=== PATIENT | female | born 1960 | race Caucasian/White ===

== ENCOUNTER → 2018-02-21 | Outpatient (CLI) | payer BC ==
[~2018-02-21] MED LIST: ATORVASTATIN CA20 MG PO; BIOTIN2500 MCG PO; INSULIN PUMP SC; METFORMIN HCL500 MG PO; POTASSIUM CITR10 MEQ PO; SYNTHROID125 MCG PO; VIT D3 PO
--- NOTE | 2018-02-22 08:51 | Diagnostic Imaging Report ---
TECHNIQUE: Magnetic resonance imaging of the RIGHT foot was performed WITHOUT injected contrast. HISTORY: Right foot pain, evaluate for infection COMPARISON: None available. DISCUSSION: Bone: No focal or infiltrative bone marrow replacing abnormality. No acute fracture or osteonecrosis. Remote fracture of the second metatarsal. Joints: Scattered degenerative arthrosis of the midfoot first MTP joint and first IP joint. Soft Tissues: Soft tissue thickening at the plantar surface of the first metatarsal head. Atrophy of the foot musculature. IMPRESSION: No acute abnormalities or osteomyelitis Signed by: Dr. Jay Nevarez M.D. on 02/22/2018 8:47 AM
== END ==
LOC: MRI 16:07
PROVIDERS: ATTEND Podiatrist Foot Surgery
DX: M86.8X7 Other osteomyelitis, ankle and foot (principal)

== ENCOUNTER → 2018-03-14 | Day surgery (SDC) | payer BC ==
[2018-03-09 13:25] LABS: BASOPHILS # (AUTO) 0.1 (0.0-0.1); BASOPHILS % 0.8 % (0.0-1.0); EOSINOPHILS # (AUTO) 0.7 (0.0-0.4); EOSINOPHILS % 6.1 % (0.0-6.0); HEMATOCRIT 40.3 % (34.2-44.1); HEMOGLOBIN 13.5 g/dL (12.0-16.0); LYMPHOCYTES # (AUTO) 4.1 (1.0-3.2); LYMPHOCYTES % 34.4 % (18.0-39.1); MEAN CORPUSCULAR HEMOGLOBIN 29.4 pg (28-32); MEAN CORPUSCULAR HGB CONC 33.5 g/dL (31-35); MEAN CORPUSCULAR VOLUME 87.8 fL (81-99); MONOCYTES # (AUTO) 1.1 (0.2-0.8); MONOCYTES % 9.5 % (4.4-11.3); NEUTROPHILS # (AUTO) 5.8 (2.1-6.9); PLATELET COUNT 311 x10e3/uL (140-360); RED BLOOD COUNT 4.59 x10e6/uL (3.6-5.1); RED CELL DISTRIBUTION WIDTH 14.3 % (11.7-14.4)
--- NOTE | 2018-03-09 13:26 | Diagnostic Imaging Report ---
Frontal and lateral views of the chest. HISTORY: PRE ADMIT foot surgery COMPARISON: None available. DISCUSSION: Soft tissue attenuation partially limits sensitivity of the exam. Lungs: Low lung volumes result in bibasilar vascular crowding, accentuation of the pulmonary interstitial markings, central pulmonary vasculature, and the cardiac silhouette. Allowing for these limitations, the findings are as follows: Mild left basilar atelectasis versus scarring. No evidence of a consolidative pneumonia or pulmonary alveolar edema. Pleura: No pleural effusion or pneumothorax. Heart and mediastinum: The cardiomediastinal silhouette appears unremarkable. Bones: No acute osseous lesion. Flowing marginal anterior osteophytes at multiple contiguous levels. Other: Partially visualized radiopaque portions of a lap band. Metallic clips in the right upper quadrant of the abdomen are compatible with prior cholecystectomy. IMPRESSION: 1. Mild left basilar atelectasis versus scarring. 2. Otherwise, unremarkable. Signed by: Dr. Juan Carrion D.O., M.M.M. on 03/09/2018 1:23 PM
[2018-03-09 13:55] LABS: CALCIUM 8.7 mg/dL (8.4-10.2); CREATININE, SERUM 0.99 mg/dL (0.57-1.11)
[~2018-03-14] MED LIST changes: +ACETAMINOPHEN 1000 MG/100 ML IV ONE; +BETAMETHASONE DISODIUM PHOS 6 MG/ML VIAL ONE; +BUPIVACAINE 0.25% 30ML SDV INJ ONE; +CEFAZOLIN SOD 2 GM/D5W 50ML 50 ML IV ONE; +DEXAMETHASONE SOD PHOS INJ 4 MG/ML VIAL ONE; +FENTANYL CITRATE/PF 100MCG/2 ML INJ ONE; +KETOROLAC TROMETHAMINE 30 MG/ML VIAL ONE; +LIDOCAINE HCL 1% LOCAL INJ 20 ML VIAL ONE; +LIDOCAINE HCL 2% LOCAL INJ 5 ML SDV VIAL INJ ONE; +MIDAZOLAM HCL 2 MG/2 ML VIAL ONE; +MUPIROCIN 2% OINT 22 GM TUBE ONE; +ONDANSETRON HCL INJ 2 MG/ML VIAL ONE; +PROPOFOL IV EMULSION 10 MG/ML 20 ML VIAL ONE; +SEVOFLURANE INHAL SOLN 250 ML PEN BTL ONE
--- OUTSIDE RECORDS SUMMARY | 2018-03-14 05:27 | XMS REPORT | Continuity of Care Document ---
Author Author [facility] Address Unknown Phone Unavailable Care Team Providers Care Explosive Ordnance Disposal Specialist Name Role Phone MD Livan, [place] RUELAS Unavailable Insurance Providers Payer name Policy type / Coverage type Policy ID Covered democrat ID Policy [facility] (POS) Encounters Encounter Performer Location Date Lab Report [place] Licona MD [facility] General Surgery 350 Dec 17, 2013 Allergies, Adverse Reactions, Alerts Type Substance Reaction Status Drug allergy SULFA Active Problems Problem Effective Dates Problem Status CHOLECYSTECTOMY, LAPAROSCOPIC, HX OF Mar 26, 2013 Active Procedures Date Description Comments Mar 26, 2013 smoking status never smoker Medications Medication Instructions Start Date Status METFORMIN 500 Mar 26, 2013 Active LEVOTHYROXINE SODIUM TABS Mar 26, 2013 Active GLIMEPIRIDE 2 MG TABS Mar 26, 2013 Active BYDUREON SUSR Mar 26, 2013 Active LANTUS SOLN Mar 26, 2013 Active SIMVASTATIN 20 MG TABS Mar 26, 2013 Active LISINOPRIL 20 MG TABS Mar 26, 2013 Active BIOTIN 5000 CAPS Mar 26, 2013 Active Vital Signs Date Description Test Result Mar 26, 2013 height E&M - 8302-2 HEIGHT 68 in Mar 26, 2013 weight E&M - 3141-9 WEIGHT 234 lb Mar 26, 2013 temperature E&M TEMPERATURE 98.4 deg f Mar 26, 2013 pulse rate E&M - 8867-4 PULSE RATE 98 /min Mar 26, 2013 blood pressure, systolic - 8480-6 BP SYSTOLIC 120 mm Hg Mar 26, 2013 blood pressure, diastolic - 8462-4 BP DIASTOLIC 83 mm Hg Apr 02, 2013 weight E&M - 3141-9 WEIGHT 234 lb Apr 02, 2013 temperature E&M TEMPERATURE 98.1 deg f Apr 02, 2013 pulse rate E&M - 8867-4 PULSE RATE 98 /min Apr 02, 2013 blood pressure, systolic - 8480-6 BP SYSTOLIC 115 mm Hg Apr 02, 2013 blood pressure, diastolic - 8462-4 BP DIASTOLIC 81 mm Hg Dec 09, 2013 height E&M - 8302-2 HEIGHT 68 in Dec 09, 2013 weight E&M - 3141-9 WEIGHT 230 lb Dec 09, 2013 temperature E&M TEMPERATURE 98.0 deg f Dec 09, 2013 pulse rate E&M - 8867-4 PULSE RATE 87 /min Dec 09, 2013 blood pressure, systolic - 8480-6 BP SYSTOLIC 145 mm Hg Dec 09, 2013 blood pressure, diastolic - 8462-4 BP DIASTOLIC 89 mm Hg Dec 17, 2013 weight E&M - 3141-9 WEIGHT 232 lb Dec 17, 2013 temperature E&M TEMPERATURE 98.1 deg f Dec 17, 2013 pulse rate E&M - 8867-4 PULSE RATE 92 /min Dec 17, 2013 blood pressure, systolic - 8480-6 BP SYSTOLIC 117 mm Hg Dec 17, 2013 blood pressure, diastolic - 8462-4 BP DIASTOLIC 77 mm Hg
--- OUTSIDE RECORDS SUMMARY | 2018-03-14 05:27 | XMS REPORT | Continuity of Care Document ---
Author Author [facility] Address Unknown Phone Unavailable Care Team Providers Care Storeroom Attendant Name Role Phone MD Livan, [place] RUELAS Unavailable Insurance Providers Payer name Policy type / Coverage type Policy ID Covered green party ID Policy Byr[facility] (POS) Encounters Encounter Performer Location Date Office Visit [place] Licona MD [facility] General Surgery 350 Dec 17, 2013 Allergies, Adverse Reactions, Alerts Type Substance Reaction Status Drug allergy SULFA Active Problems Problem Effective Dates Problem Status CHOLECYSTECTOMY, LAPAROSCOPIC, HX OF Mar 26, 2013 Active SEBACEOUS CYST Dec 17, 2013 Active Procedures Date Description Comments Mar [...]
--- OUTSIDE RECORDS SUMMARY | 2018-03-14 05:27 | XMS REPORT | Encounter Summary ---
Author Organization Unknown Address [address] [place] [id number] Phone [phone] Reason for Visit Medical Complaint Instructions 1. Acute sinusitis sinusitis: care instructions Augmentin 875 mg-125 mg tablet 2. Cough cough: care instructions benzonatate 200 mg capsule 3. Fever learning about fever rapid flu (A+B) 4. Body mass index 30+ - obesity eating healthy foods: care instructions Discussion Note Pt is aaox3 and in NAD; verbalizes understanding of all instructions and has no further questions at this time Plan of Care Patient Instructions Take medications as prescribed and discussed; follow up with your PCP within 2-3 days or sooner should symptoms worsen. Go to the ER if you experience shortness of breath or difficulty breathing despite using medications prescribed today. Reminders Provider Appointments None recorded. Lab Rapid Flu (A+B) 03/25/2017 [facility] Referral None recorded. Procedures None recorded. Surgeries None recorded. Imaging None recorded. Medications Name Start Date atorvastatin 20 mg tablet TK 1 T PO D atorvastatin calcium 20 mg tabs Augmentin 875 mg-125 mg tablet Take 1 tablet every 12 hours by oral route with meals for 7 days. benzonatate 200 mg capsule Take 1 capsule 3 times a day by oral route as needed. diclofenac sodium 3 % gel glimepiride 4 mg tabs humalog kwikpen 100 unit/ml sopn Humalog KwikPen 100 unit/mL subcutaneous INJ 10 UNITS SC BEFORE EACH MEAL TID Lantus Solostar 100 unit/mL (3 mL) subcutaneous insulin pen INJECT 150 UNITS UNDER THE SKIN QHS lantus solostar 100 unit/ml sopn levothyroxine 137 mcg tablet TK 1 T PO QD levothyroxine sodium 137 mcg tabs lisinopril 5 mg tabs methocarbamol 750 mg tabs novofine mis [id number] Novofine 32 32 gauge x 1/4" needle USE ONCE A DAY WITH INSULIN PEN Medications Administered None recorded. Vitals Height Weight BMI Blood Pressure 5 ft 8 in 230 lbs 35 kg/m2 120/70 mm[Hg] Lab Results Date Name Specimen Result Interpretation Description Value Range Status Address Rapid Flu (A+B) Influenza a negative [facility]: [address] [place] [address] Influenza B negative [facility]: [facility] Allergies Code Code System Name Reaction Severity Status Onset Sulfa (Sulfonamide Antibiotics) Active Problems No Known Problems Procedures None recorded. Vaccine List None recorded. Social History Smoking Status Never Smoker Past Encounters 03/25/2017 Acute Sinusitis; Cough; Fever; Body Mass Index 30+ - Obesity [facility]: [address] [place] [address], Ph. History of Present Illness Zlteb-Wbkjyrgxxw-Rryyjoa Reported By: Patient HPI: Location: head/sinuses. Quality: productive cough, nasal/sinus congestion, hacking cough. Duration: 7days. Severity: mild. Onset/Timing: sudden. Context: no sick contacts, no foreign travel, non-smoker. Modifying factors: OTC medication. Associated Symptoms: no sputum production, no shortness of breath, no wheezing, no change in number of pillows needed to sleep at night, no sweats, no significant weight gain, no significant weight loss, no morning cough, no sore throat, no vomiting, no diarrhea, no rash, no nausea, no fever, fatigue, fever, muscle aches, headache Review of Systems:ROS as noted in the HPI Review of Systems Basic Reported By: Patient Physical Exam Adult Basic, Adult Female Complete Reported By: Patient Constitutional: General Appearance: healthy-appearing, well-nourished, well-developed. Level of Distress: NAD Psychiatric: Mental Status: active and alert. Orientation: to time, to place, to person Efk-Suaj-Fsghj-Throat: Ears: no lesions on external ear, no outer ear tenderness, EACs clear, TMs clear. Hearing: no hearing loss. Nose: no lesions on external nose, nares patent, no septal deviation, nasal passages clear, no nasal discharge, sinus tenderness. Lips, Teeth, and Gums: no mouth or lip ulcers, no bleeding gums, normal dentition. Oropharynx: moist mucous membranes, no erythema, no exudates, tonsils not enlarged Lungs: Respiratory effort: no dyspnea, no tachypnea, no use of accessory muscles, no intercostal retractions. Auscultation: breath sounds normal Cardiovascular: Heart Auscultation: RRR, no murmurs. Neck vessels: no carotid bruits. Pulses including femoral / pedal: normal throughout Neurologic: Gait and Station: normal gait, normal station
--- OUTSIDE RECORDS SUMMARY | 2018-03-14 05:27 | XMS REPORT | Continuity of Care Document ---
Author Author [facility] Organization [facility] Address Unknown Phone Unavailable Care Team Providers Care Tractor Operator Name Role Phone MD Livan, [place] RUELAS Unavailable Insurance Providers Payer name Policy type / Coverage type Policy ID Covered libertarian ID Policy Byrnes [facility] (POS) Encounters Encounter Performer Location Date Lab Report [place] Licona MD [facility] Dec 10, 2013 Allergies, Adverse Reactions, Alerts Type Substance [...]
--- OUTSIDE RECORDS SUMMARY | 2018-03-14 05:27 | XMS REPORT | Continuity of Care Document ---
Author Author [facility] Address Unknown Phone Unavailable Problems Problem Status Onset Date Classification Date Reported Comments Source Acute sinusitis 03/25/2017 Diagnosis 03/25/2017 [facility] Cough 03/25/2017 Diagnosis 03/25/2017 [facility] Fever 03/25/2017 Diagnosis 03/25/2017 [facility] Body mass index 30+ - obesity 03/25/2017 Diagnosis 03/25/2017 [facility] SEBACEOUS CYST Active 12/17/2013 Condition 12/17/2013 [facility] CHOLECYSTECTOMY, LAPAROSCOPIC, HX OF Active 03/26/2013 Condition 12/17/2013 [facility] Medications Medication Details Route Status Patient Instructions Ordering Provider Order Date Source METFORMIN 500 Active 03/26/2013 [facility] LEVOTHYROXINE SODIUM TABS Active 03/26/2013 [facility] GLIMEPIRIDE 2 MG TABS Active 03/26/2013 [facility] BYDUREON SUSR Active 03/26/2013 [facility] LANTUS SOLN Active 03/26/2013 [facility] SIMVASTATIN 20 MG TABS Active 03/26/2013 [facility] LISINOPRIL 20 MG TABS Active 03/26/2013 [facility] BIOTIN 5000 CAPS Active 03/26/2013 [facility] SIMVASTATIN 20 MG TABS Active 03/26/2013 [facility] LISINOPRIL 20 MG TABS Active 03/26/2013 [facility] atorvastatin 20 MG Oral Tablet atorvastatin 20 mg tablet TK 1 T PO D Active [facility] atorvastatin calcium 20 mg tabs atorvastatin calcium 20 mg tabs Active [facility] Amoxicillin 875 MG / Clavulanate 125 MG Oral Tablet [Augmentin] Augmentin 875 mg-125 mg tablet Take 1 tablet every 12 hours by oral route with meals for 7 days. Active [facility] benzonatate 200 MG Oral Capsule benzonatate 200 mg capsule Take 1 capsule 3 times a day by oral route as needed. Active [facility] diclofenac sodium 3 % gel diclofenac sodium 3 % gel Active [facility] glimepiride 4 mg tabs glimepiride 4 mg tabs Active [facility] humalog kwikpen 100 unit/ml sopn humalog kwikpen 100 unit/ml sopn Active [facility] 3 ML Insulin Lispro 100 UNT/ML Pen Injector [Humalog] Humalog KwikPen 100 unit/mL subcutaneous INJ 10 UNITS SC BEFORE EACH MEAL TID Active [facility] 3 ML Insulin Glargine 100 UNT/ML Pen Injector [Lantus] Lantus Solostar 100 unit/mL (3 mL) subcutaneous insulin pen INJECT 150 UNITS UNDER THE SKIN QHS Active [facility] lantus solostar 100 unit/ml sopn lantus solostar 100 unit/ml sopn Active [facility] Levothyroxine Sodium 0.137 MG Oral Tablet levothyroxine 137 mcg tablet TK 1 T PO QD Active [facility] levothyroxine sodium 137 mcg tabs levothyroxine sodium 137 mcg tabs Active [facility] lisinopril 5 mg tabs lisinopril 5 mg tabs Active [facility] methocarbamol 750 mg tabs methocarbamol 750 mg tabs Active [facility] novofine mis [id number] novofine mis [id number] Active [facility] Novofine 32 32 gauge x 1/4" needle Novofine 32 32 gauge x 1/4" needle USE ONCE A DAY WITH INSULIN PEN Active [facility] Allergies, Adverse Reactions, Alerts Substance Category Reaction Severity Reaction type Status Date Reported Comments Source SULFA Drug allergy SULFA 03/26/2013 [facility] Sulfa (Sulfonamide Antibiotics) Allergy to substance 03/25/2017 [facility] Immunizations Immunization Date Given Site Status Last Updated Comments Source Results Order Name Results Value Reference Range Date Interpretation Comments Source Influenza A negative 03/25/2017 [facility] Influenza B negative 03/25/2017 [facility] Vital Signs Vital Sign Value Date Comments Source Diastolic (mm Hg) 70 03/25/2017 [facility] Height 68 03/25/2017 [facility] Systolic (mm Hg) 120 03/25/2017 [facility] Weight 230 03/25/2017 [facility] Weight 232 12/17/2013 [facility] Temperature Oral (F) 98.1 F 12/17/2013 [facility] Heart Rate 92 12/17/2013 [facility] Systolic (mm Hg) 117 12/17/2013 [facility] Diastolic (mm Hg) 77 12/17/2013 [facility] Height 68 12/09/2013 [facility] Weight 230 12/09/2013 [facility] Temperature Oral (F) 98.0 F 12/09/2013 [facility] Heart Rate 87 12/09/2013 [facility] Systolic (mm Hg) 145 12/09/2013 [facility] Diastolic (mm Hg) 89 12/09/2013 [facility] Weight 234 04/02/2013 [facility] Temperature Oral (F) 98.1 F 04/02/2013 [facility] Heart Rate 98 04/02/2013 [facility] Systolic (mm Hg) 115 04/02/2013 [facility] Diastolic (mm Hg) 81 04/02/2013 [facility] Height 68 03/26/2013 [facility] Weight 234 03/26/2013 [facility] Temperature Oral (F) 98.4 F 03/26/2013 [facility] Heart Rate 98 03/26/2013 [facility] Systolic (mm Hg) 120 03/26/2013 [facility] Diastolic (mm Hg) 83 03/26/2013 [facility] Encounters Location Location Details Encounter Type Encounter Number Reason For Visit Attending Provider ADM Date DC Date Status Source [facility] Lab Report [id number] [place] Licona MD 12/10/2013 12/10/2013 [facility] General Surgery 350 Lab Report [id number] [place] Licona MD 12/17/2013 12/17/2013 [facility] General Surgery 350 Office Visit [id number] [place] Licona MD 12/17/2013 12/17/2013 [facility] [place] - [id number] Marshall Scanlon, MANAGED CARE DIRECTOR-C: [address] [place] [address], Ph. [id number] Marshall Scanlon 03/25/2017 [facility] Procedures Procedure Code Date Perfomer Comments Source
--- OUTSIDE RECORDS SUMMARY | 2018-03-14 05:27 | XMS REPORT ---
Author Author [facility] Address Unknown Phone Unavailable Care Team Providers Care Welfare Worker Name Role Phone CHRISTIANA SALMERON Unavailable Unavailable Problems This patient has no known problems. Allergies, Adverse Reactions, Alerts This patient has no known allergies or adverse reactions. Medications This patient has no known medications. Results Test Description Test Time Test Comments Text Results Atomic Results Result Comments CHEST 2 VIEWS 2018-03-09 13:21:00 [place] [address] Patient Name: RIO FERGUSON MR #: [id number] : 1960 Age/Sex: 57/F Req #: [id number] Adm Physician: Ordered by: CHRISTIANA SALMERON DPM Report #: [id number] Location: OR Room/Bed: Procedure: [id number] DX/CHEST 2 VIEWS Exam Date: 03/09/18 Exam Time: 1240 REPORT STATUS: Signed Frontal and lateral views of the chest. HISTORY: PRE AD LANETTE foot surgery COMPARISON: None available. DISCUSSION: Soft tissue attenuation partially limits sensitivity of the exam. Lungs: Low lung volumes result in bibasilar vascular crowding, accentuation of the pulmonary interstitial markings, central pulmonary vasculature, and the cardiac silhouette. Allowing for these limitations, the findings are as follows: Mild left basilar atelectasis versus scarring. No evidence of a consolidative pneumonia or pulmonary alveolar edema. Pleura: No pleural effusion or pneumothorax. Heart and mediastinum: The cardiomediastinal silhouette appears unremarkable. Bones: No acute osseous lesion. Flowing marginal anterior osteophytes at multiple contiguous levels. Other: Partially visualized radiopaque portions of a lap band. Metallic clips in the right upper quadrant of the abdomen are compatible with prior cholecystectomy. IMPRESSION: 1. Mild left basilar atelectasis versus scarring. 2. Otherwise, unremarkable. Signed by: Dr. Jenny Carrion D.O., M.M.M. on 03/09/2018 1:23 PM Dictated By: JENNY CARRION DO 1323 Transcribed By: KARY on 03/09/18 1323 COPY TO: CHRISTIANA SALMERON DPM MRI FOOT RIGHT WO 2018-02-22 08:44:00 [place] [address] Patient Name: RIO FERGUSON MR #: [id number] : 1960 Age/Sex: 57/F Req #: [id number] Adm Physician: Ordered by: CHRISTIANA SALMERON DPM Report #: [id number] Location: MRI Room/Bed: Procedure: [id number] MRI/MRI FOOT RIGHT WO Exam Date: Exam Time: REPORT STATUS: Signed TECHNIQUE: Magnetic resonance imaging of the RIGHT foot was performe d WITHOUT injected contrast. HISTORY: Right foot pain, evaluate for infection COMPARISON: None available. DISCUSSION: Bone: No focal or infiltrative bone marrow replacing abnormality. No acute fracture or osteonecrosis. Remote fracture of the second metatarsal. Joints: Scattered degenerative arthrosis of the midfoot first MTP joint and first IP joint. Soft Tissues: Soft tissue thickening at the plantar surface of the first metatarsal head. Atrophy of the foot musculature. IMPRESSION: No acute abnormalities or osteomyelitis Signed by: Dr. Opal Davidson M.D. on 02/22/2018 8:47 AM Dictated By: OPAL DAVIDSON MD 6 Transcribed By: KARY on 02/22/18846 COPY TO: CHRISTIANA SALMERON DPM
--- NOTE | 2018-03-14 07:10 | NUR ---
SPIRITUAL CARE - Pre-Surgery Assessment: Pt in bed. Pt reported supportive attention from family and friends. Intervention: I provided pastoral presence, hospitality, and sympathetic listening. I acquainted pt with availability of child care attendant school while hospitalized. Outcome: Pt expressed appreciation for visit. No need for follow up indicated at this time. [facility] Spiritual Care Department O: [phone] Pager: [phone] ([phone] number calling from)
--- NOTE | 2018-03-14 09:29 | Operative Report ---
DATE OF PROCEDURE: March 14, 2018 PREOPERATIVE DIAGNOSES 1. Painful hallux valgus deformity, right foot. 2. Painful contracted hammertoe, 2nd digit, right foot. 3. Painful contracted hammertoe, 3rd digit, right foot. 4. Painful contracted hammertoe, 4th digit, right foot. 5. Painful contracted hammertoe, 5th digit, right foot. POSTOPERATIVE DIAGNOSES 1. Painful hallux valgus deformity, right foot. 2. Painful contracted hammertoe, 2nd digit, right foot. 3. Painful contracted hammertoe, 3rd digit, right foot. 4. Painful contracted hammertoe, 4th digit, right foot. 5. Painful contracted hammertoe, 5th digit, right foot. OPERATIVE PROCEDURES 1. Julio bunionectomy/elevating osteotomy, right foot. 2. Arthroplasty, 2nd with Merced wire fixation, 2nd. 3. Arthroplasty, 3rd with Merced wire fixation, 3rd. 4. Arthroplasty, 4th with Merced wire fixation, 4th. 5. Arthroplasty, 5th with Merced wire fixation, 5th. 6. Intraoperative use of fluoroscopy. 7. Trigger point shot of cortisone. 8. Application of posterior splint. ANESTHESIA: General. HEMOSTASIS: Pneumatic thigh tourniquet at 350 mmHg. PROCEDURE IN DETAIL: Patient was taken into the operating room and placed on the operating room table in the supine position. Following induction of general anesthesia by the anesthesiologist, Webril wraps were placed on the patient's right thigh followed by application of a right thigh tourniquet. The right lower extremity was then prepped and draped in the usual aseptic manner. Following procedure was then performed. PROCEDURE #1: Julio bunionectomy/elevating osteotomy, right foot. Attention was directed to the dorsomedial aspect of the 1st MPJ where a 6 cm linear incision was performed. Incision was deepened down to the joint capsule. Longitudinal capsulotomy was then performed exposing the head of the 1st metatarsal. Via use of an oscillating saw, a medial exostosis of the head of the 1st metatarsal was excised from the operation site in toto. A V-osteotomy was then performed from medial to lateral. A plantar wedge from the plantar V-cut was excised to elevate the metatarsal head. Then utilizing proper AO technique, a 2 x 16 mm cortical screw in conjunction with a buried 0.045 K-wire was then used to achieve stability at the osteotomy site. Approximately, 0.5 mL of a centimeter was elevated after the proper reduction was performed. All rough and bony edges were rasped smooth and burred utilizing a rotating bur. PROCEDURES #2-5: Arthroplasty, 2nd through 5th with K-wire fixation, 2nd through 4th. Attention was then directed to the dorsal aspect to the above-mentioned toes overlying the proximal interphalangeal joint where a 3 cm linear incision was performed. Incision was deepened down to the joint capsule. Transverse capsulotomy was then performed exposing the head of the proximal phalanx. Via the use of an oscillating saw, head of the proximal phalanxes were excised from the operation site in toto. Second through 4th toes were still noted be contracted, so a 0.045 K-wire was introduced up to the metatarsophalangeal joint to achieve proper anatomic reduction. PROCEDURE #6: Intraoperative use of fluoroscopy was then used to make sure proper alignment and fixation was achieved. Closure was then obtained utilizing 3-0 Vicryl, 4-0 Vicryl and 4-0 nylon after properly and copiously flushing the areas with saline. PROCEDURE #7: Trigger point shot of cortisone was then given to the 1st and 4th interspace of the right foot. Then approximately 10 mL of 0.5% plain Marcaine plus mL of 1% Xylocaine plain were used to achieve local anesthesia to the above-mentioned surgical area. Sterile dressing was applied. Upon release of the thigh tourniquet, blood hyperemia was noted to be immediate to all digits of the patient's right foot. PROCEDURE #8: Application of posterior splint. A properly placed posterior splint was then applied keeping the foot at 90 degrees with respect to the leg to try to prevent any type of postoperative complications. Patient was then transferred from the OR to the recovery room with vital signs stable and neurovascular status in tact. No intraoperative complications were encountered. Blood loss from the surgery was minimal. Patient to remain nonweightbearing with the aid of crutches. Keep her foot elevated, and is to apply an ice pack to the ankle joint area. Job#: [id number] ND
--- NOTE | 2018-03-14 10:26 | Diagnostic Imaging Report ---
PROCEDURE:X-RAY RIGHT FOOT, TWO VIEWS COMPARISON:None. INDICATIONS:POST RIGHT FOOT SURGERY FINDINGS: See conclusion. CONCLUSION: AP and lateral post-operative views of the right foot with overlying bandage material show post-surgical changes of a bunionectomy and arthroplasty with wire and screw through the distal first metatarsal and K wires through the second, third and fourth phalanges. There is surrounding soft-tissue swelling consistent with recent surgery. Spurring of the calcaneus is noted. Please refer to performing physician's notes for full details of this procedure. Manoj Saucedo D.O. Dictated by: Manoj Saucedo D.O. on 03/14/2018 at 10:37 Electronically approved by: Manoj Saucedo D.O. on 03/14/2018 at 10:37
[2018-03-14 10:40] VITALS: BP 131/77
== END | disposition home or self-care (01) ==
LOC: OR 05:24
PROVIDERS: ATTEND Podiatrist Foot Surgery
DX: M20.11 Hallux valgus (acquired), right foot (principal); M20.41 Other hammer toe(s) (acquired), right foot; E11.9 Type 2 diabetes mellitus without complications; Z88.1 Allergy status to other antibiotic agents; Z88.2 Allergy status to sulfonamides; Z01.810 Encounter for preprocedural cardiovascular examination; Z01.812 Encounter for preprocedural laboratory examination; Z01.818 Encounter for other preprocedural examination; Z79.4 Long term (current) use of insulin
CPT/HCPCS: 28285 ×4; 28296; 36415 ×2; 71046; 73620; 80048; 82948; 85025; 93005; C1713 ×2; J0131; J0690; J0720; J1100; J1885; J2001 ×2; J2250; J2405; J2704

== ENCOUNTER → 2018-08-31 | Day surgery (SDC) | payer BC ==
[~2018-08-31] MED LIST changes: -ACETAMINOPHEN 1000 MG/100 ML IV ONE; -BETAMETHASONE DISODIUM PHOS 6 MG/ML VIAL ONE; -BUPIVACAINE 0.25% 30ML SDV INJ ONE; -CEFAZOLIN SOD 2 GM/D5W 50ML 50 ML IV ONE; -DEXAMETHASONE SOD PHOS INJ 4 MG/ML VIAL ONE; +EPHEDRINE SULFATE INJ 50 MG/10 ML SYR ONE; +GLUCAGON FOR INJ 1 MG VIAL ONE; +HYOSCYAMINE 0.125 MG TAB ONE; -KETOROLAC TROMETHAMINE 30 MG/ML VIAL ONE; -LIDOCAINE HCL 1% LOCAL INJ 20 ML VIAL ONE; +LISINOPRIL2.5 MG PO; +METOCLOPRAMIDE HCL 10 MG/2ML VIAL ONE; -MUPIROCIN 2% OINT 22 GM TUBE ONE; -ONDANSETRON HCL INJ 2 MG/ML VIAL ONE; -PROPOFOL IV EMULSION 10 MG/ML 20 ML VIAL ONE; +PROPOFOL IV EMULSION 10 MG/ML 50 ML VIAL ONE; -SEVOFLURANE INHAL SOLN 250 ML PEN BTL ONE
--- OUTSIDE RECORDS SUMMARY | 2018-08-31 06:04 | XMS REPORT | Continuity of Care Document ---
Author Author [employer] Address Unknown Phone Unavailable Care Team Providers Care Brake Adjuster Name Role Phone MBA and Company Information [employer] Unavailable Unavailable Problems Problem Status Onset Date Classification [...] Medical Group LEVOTHYROXINE SODIUM TABS Active 03/26/2013 [facility] GLIMEPIRIDE 2 MG TABS Active 03/26/2013 [facility] BYDUREON SUSR Active 03/26/2013 [facility] LANTUS SOLN Active 03/26/2013 [facility] SIMVASTATIN 20 MG TABS Active 03/26/2013 [facility] LISINOPRIL 20 MG TABS Active 03/26/2013 [facility] BIOTIN 5000 CAPS Active 03/26/2013 [facility] SIMVASTATIN 20 MG TABS Active 03/26/2013 [facility] LISINOPRIL 20 MG TABS Active 03/26/2013 [facility] atorvastatin 20 MG Oral Tablet atorvastatin [...] 750 mg tabs Active [facility] novofine mis [id number] novofine mis [id number] Active [facility] Novofine 32 32 gauge x 1/4" needle Novofine 32 32 gauge x 1/4" needle USE ONCE A DAY WITH INSULIN PEN Active [facility] Allergies, Adverse Reactions, Alerts Substance Category Reaction Severity Reaction type Status Date Reported Comments Source SULFA Drug allergy SULFA 03/26/2013 [facility] Sulfa (Sulfonamide Antibiotics) Allergy to substance 03/25/2017 [facility] Immunizations No Data Provided for This Section Results Order Name Results Value Reference Range Date Interpretation Comments Source Influenza A negative 03/25/2017 [facility] Influenza B negative 03/25/2017 [facility] Pathology Reports No Data Provided for This Section Diagnostic Reports No Data Provided for This Section Consultation Notes No Data Provided for This Section Discharge Summaries No Data Provided for This Section History and Physicals No Data Provided for This Section Vital Signs Vital Sign Value Date Comments Source Diastolic (mm Hg) 70 03/25/2017 [facility] Height 68 03/25/2017 [facility] Systolic (mm Hg) 120 03/25/2017 [facility] Weight 230 03/25/2017 [facility] Weight 232 12/17/2013 [facility] Temperature Oral (F) 98.1 F 12/17/2013 [facility] Heart Rate 92 12/17/2013 [facility] Systolic (mm Hg) 117 12/17/2013 [facility] Diastolic (mm Hg) 77 12/17/2013 [facility] Height 68 12/09/2013 [facility] Weight 230 12/09/2013 [facility] Temperature Oral (F) 98.0 F 12/09/2013 [facility] Heart Rate 87 12/09/2013 [facility] Systolic (mm Hg) 145 12/09/2013 [facility] Diastolic (mm Hg) 89 12/09/2013 [facility] Weight 234 04/02/2013 [facility] Temperature Oral (F) 98.1 F [...] Provider ADM Date DC Date Status Source [facility] Lab Report [id number] Modesto Licona MD 12/10/2013 12/10/2013 [facility] General Surgery 350 Office Visit [id number] Modesto Licona MD 12/17/2013 12/17/2013 [facility] General Surgery 350 Lab Report [id number] Modesto Licona MD 12/17/2013 12/17/2013 [facility] [place] - [facility] - [id number]: [address] [place] [address], Ph. [id number] Marshall Scanlon 03/25/2017 [facility] Procedures No Data Provided for This Section Assessment and Plan No Data Provided for This Section Plan of Care No Data Provided for This Section Social History Social History Date Source Smoking Status Never Smoker 03/25/2017 [facility] Family History No Data Provided for This Section Advance Directives No Data Provided for This Section Functional Status No Data Provided for This Section
--- NOTE | 2018-08-31 07:05 | NUR ---
SPIRITUAL CARE - Pre-Surgery Assessment: Pt in bed. Pt's mom at bedside. Pt identified as Confucianist. Pt reported supportive attention from family and friends. Intervention: I provided pastoral presence, hospitality, sympathetic listening, and prayer. I acquainted pt with availability of ms sql server developer while hospitalized. Outcome: Pt expressed appreciation for visit. No need for follow up indicated at this time. JUDE SALGADO Outbound Call Center Representative Spiritual Care Department O: [phone] Pager: [phone] ([phone] number calling from)
[2018-08-31 09:30] VITALS: BP 113/63
--- NOTE | 2018-08-31 15:44 | Operative Report ---
DATE OF PROCEDURE: 08/31/2018 SURGEON: Jorge Arevalo MD PROCEDURE: EGD with biopsies and brushings, and a colonoscopy with polypectomy. INDICATION FOR EGD: Dyspepsia. INDICATIONS FOR COLONOSCOPY: Colorectal cancer screening. MEDICATIONS: The patient was done under MAC. Please see anesthesiologist's note. PROCEDURE IN DETAIL: With the patient in left lateral decubitus position, a flexible fiberoptic Olympus gastroscope was introduced into the esophagus under direct visualization without any difficulty. There was some scattered whitish plaques noted in the esophagus and those were brushed to rule out Summer esophagitis. There were some minute tongues of velvety red mucosa were noted extending proximally from the GE junction. Biopsies were obtained to rule out Pozo's. The scope was then advanced with ease into the stomach. Mucosa overlying the antrum and the body revealed some patchy erythema, lwt-bsuga-al-moderate edema and biopsies were obtained and sent to stain for H. pylori. The pylorus was of normal contour and shape, it was intubated with ease and the scope was advanced all the way to the second portion of the duodenum. Biopsies were obtained from the second portion and duodenal bulb to rule out sprue. The scope was then withdrawn back into the stomach and retroflexed, and an intact lap band was noted in good position. The scope was then straightened out, it was subsequently withdrawn. The patient tolerated the procedure well. IMPRESSION: 1. Rule out Summer esophagitis. 2. Rule out Pozo esophagus. 3. Status post lap band, intact. 4. Gastritis, biopsied. Biopsies sent to stain for H. pylori. 5. Rule out sprue. PLAN: Follow up histology. Initiate Protonix 40 mg one p.o. q.a.m. a.c. The patient was then turned around after adequate lubrication of the anal canal. A flexible fiberoptic Olympus colonoscope was inserted into the rectum with ease and advanced all the way to the cecum. One polyp was snared from the cecum. Two polyps were snared. Two polyps were removed per the cold biopsy forceps from the ascending colon. One polyp was snared and one polyp was removed per the cold biopsy forceps from the transverse colon. Diverticular disease was noted to involve the distal descending and the sigmoid colon. One polyp was removed per hot biopsy forceps from the descending colon. Two polyps were removed per the hot biopsy forceps from the sigmoid colon. The rectum appeared to be within normal limits. The scope was then retroflexed into the distal rectum and small internal hemorrhoids were noted, none of which was actively bleeding. The scope was then straightened out, it was subsequently withdrawn. The patient tolerated the procedure well. IMPRESSION: 1. Cecal polyp snared. 2. Ascending colon polyps x4, two snared and two remove per the cold biopsy forceps. 3. Transverse colon polyps x2, one snared and one removed per cold biopsy forceps. 4. Descending colon polyp, hot biopsied. 5. Diverticulosis. 6. Sigmoid colon polyps x2 hot biopsied. 7. Internal hemorrhoids, none actively bleeding. A total of 10 polyps were removed. PLAN: Followup histology. Initiate high-fiber, low-fat diet. Initiate high-fiber supplement. The patient might benefit from a followup colonoscopy in 1 to 2 years. MD MONSTER Nguyễn/SLOANE /[id number]
== END | disposition home or self-care (01) ==
LOC: OR 05:42
PROVIDERS: ATTEND Internal Medicine Gastroenterology
DX: K59.00 Constipation, unspecified (principal); D12.0 Benign neoplasm of cecum; D12.2 Benign neoplasm of ascending colon; D12.3 Benign neoplasm of transverse colon; K29.50 Unspecified chronic gastritis without bleeding; K21.0 Gastro-esophageal reflux disease with esophagitis; B37.81 Candidal esophagitis; K57.30 Diverticulosis of large intestine without perforation or abscess without bleeding; K64.8 Other hemorrhoids; Z98.84 Bariatric surgery status; E11.9 Type 2 diabetes mellitus without complications; N39.0 Urinary tract infection, site not specified; I10 Essential (primary) hypertension; I45.10 Unspecified right bundle-branch block; Z88.2 Allergy status to sulfonamides; Z01.810 Encounter for preprocedural cardiovascular examination; Z85.850 Personal history of malignant neoplasm of thyroid
CPT/HCPCS: 36415; 43239; 45380; 45384; 45385; 82948; 93005; J1610; J2001; J2250; J2704; J2765; 43235; 45378; J3010

== ENCOUNTER → 2018-10-18 | Day surgery (SDC) | payer BC ==
[2018-10-15 13:28] LABS: BASOPHILS # (AUTO) 0.1 (0.0-0.1); BASOPHILS % 0.7 % (0.0-1.0); EOSINOPHILS # (AUTO) 0.5 (0.0-0.4); EOSINOPHILS % 5.3 % (0.0-6.0); HEMATOCRIT 40.7 % (34.2-44.1); HEMOGLOBIN 13.6 g/dL (12.0-16.0); LYMPHOCYTES # (AUTO) 3.8 (1.0-3.2); LYMPHOCYTES % 38.1 % (18.0-39.1); MEAN CORPUSCULAR HEMOGLOBIN 29.2 pg (28-32); MEAN CORPUSCULAR HGB CONC 33.4 g/dL (31-35); MEAN CORPUSCULAR VOLUME 87.3 fL (81-99); MONOCYTES % 9.7 % (4.4-11.3); NEUTROPHILS # (AUTO) 4.6 (2.1-6.9); NEUTROPHILS % 45.8 % (38.7-80.0); PLATELET COUNT 286 x10e3/uL (140-360); RED BLOOD COUNT 4.66 x10e6/uL (3.6-5.1); RED CELL DISTRIBUTION WIDTH 14.4 % (11.7-14.4)
[2018-10-15 13:38] LABS: ANION GAP 12.8 mmol/L (8-16); CALCIUM 9.5 mg/dL (8.4-10.2); CREATININE, SERUM 0.98 mg/dL (0.57-1.11); POTASSIUM 3.8 mmol/L (3.5-5.1)
--- NOTE | 2018-10-15 14:25 | Diagnostic Imaging Report ---
EXAMINATION: CHEST 2 VIEWS INDICATION: Pre-operative COMPARISON: None FINDINGS: LINES/TUBES:None LUNGS:The lungs are moderately inflated. No focal consolidation or pulmonary edema. Mild patchy opacity at the left lung base, likely subsegmental atelectasis. PLEURA:No pleural effusion or pneumothorax. MEDIASTINUM:The cardiomediastinal silhouette appears normal in size and shape. BONES/SOFT TISSUES:No acute osseous injury. ABDOMEN:No free air under the diaphragm. IMPRESSION: No focal pneumonia or pulmonary edema. Signed by: Alexandrea Yeboah MD on 10/15/2018 2:21 PM
[~2018-10-18] MED LIST changes: +BETAMETHASONE DISODIUM PHOS 6 MG/ML VIAL ONE; +BUPIVACAINE HCL 0.5% INJ 30 ML VIAL INJ ONE; +CEFAZOLIN SOD 1 GM VIAL ONE; +CEFAZOLIN SOD 1 GM/NS 50ML 100 ML IV ONE; +DESFLURANE 240 ML BTL INH ONE; +DEXAMETHASONE SOD PHOS INJ 4 MG/ML VIAL ONE; -EPHEDRINE SULFATE INJ 50 MG/10 ML SYR ONE; -FENTANYL CITRATE/PF 100MCG/2 ML INJ ONE; -GLUCAGON FOR INJ 1 MG VIAL ONE; -HYOSCYAMINE 0.125 MG TAB ONE; +INSULIN REGULAR, HUMAN 100 UNIT/1 ML 3ML VIAL ONE; +KETOROLAC TROMETHAMINE 30 MG/ML VIAL ONE; +LIDOCAINE HCL 1% LOCAL INJ 20 ML VIAL ONE; -LIDOCAINE HCL 2% LOCAL INJ 5 ML SDV VIAL INJ ONE; -METOCLOPRAMIDE HCL 10 MG/2ML VIAL ONE; -MIDAZOLAM HCL 2 MG/2 ML VIAL ONE; +MUPIROCIN 2% OINT 22 GM TUBE ONE; +ONDANSETRON HCL INJ 2MG/ML 2ML 2 MG/ML VIAL ONE; +PROPOFOL IV EMULSION 10 MG/ML 20 ML VIAL ONE; -PROPOFOL IV EMULSION 10 MG/ML 50 ML VIAL ONE
--- OUTSIDE RECORDS SUMMARY | 2018-10-18 05:39 | XMS REPORT | Continuity of Care Document ---
Author Author [employer] Address Unknown Phone Unavailable Care Team Providers Care Practice Assistant Name Role Phone [employer] Information [employer] Unavailable Unavailable Problems Problem Status Onset Date [...] Medical Group LEVOTHYROXINE SODIUM TABS Active 03/26/2013 [facility] GLIMEPIRIDE 2 MG TABS Active 03/26/2013 [facility] BYDUREON SUSR Active 03/26/2013 [facility] LANTUS SOLN Active 03/26/2013 [facility] SIMVASTATIN 20 MG TABS Active 03/26/2013 [facility] LISINOPRIL 20 MG TABS Active 03/26/2013 [facility] BIOTIN 5000 CAPS Active 03/26/2013 [facility] SIMVASTATIN 20 MG TABS Active 03/26/2013 [facility] LISINOPRIL 20 MG TABS Active 03/26/2013 [facility] atorvastatin 20 MG Oral Tablet [...] 750 mg tabs Active [facility] novofine mis [id number] novofine mis [id number] Active [facility] Novofine 32 32 gauge x [...] Provider ADM Date DC Date Status Source [facility] Lab Report [id number] Modesto Licona MD 12/10/2013 12/10/2013 [facility] General Surgery 350 Office Visit [id number] Modesto Licona MD 12/17/2013 12/17/2013 [facility] General Surgery 350 Lab Report [id number] Modesto Licona MD 12/17/2013 12/17/2013 [facility] [place] - [facility] - [id number]: [address] [place] [address], Ph. [id number] Marshall Scanlon 03/25/2017 [facility] Procedures No Data [...]
[2018-10-18 09:15] VITALS: BP 111/75
--- NOTE | 2018-10-18 09:48 | Diagnostic Imaging Report ---
Left foot, 3 views. History: Postop. Findings: Overlying casting material is present obscuring the fine bony details. Bone mineralization is normal. Surgical pins are present within the third and fourth toes. 2 surgical screws are present in the distal aspect of the first metatarsal. The bones are in gross anatomic alignment. Degenerative changes are noted in the midfoot. IMPRESSION: Postoperative changes involving the first metatarsal and third and fourth toes. Signed by: Tadeo Garay on 10/18/2018 9:44 AM
--- NOTE | 2018-10-18 15:18 | Operative Report ---
DATE OF PROCEDURE: 10/18/2018 SURGEON: Cem Cho DPM PREOPERATIVE DIAGNOSES: 1. Painful hallux valgus deformity/plantar flexed 1st metatarsal, left foot. 2. Painful contracted hammer digits, 3rd digit, left foot. 3. Painful contracted hammer digits, 4th digit, left foot. 4. Painful contracted hammer digits, 5th digit, left foot. POSTOPERATIVE DIAGNOSES: Confirmed. OPERATIVE PROCEDURES: 1. Julio bunionectomy with elevating osteotomy 1st metatarsal left foot. 2. Arthroplasty of 3rd digit with K-wire fixation, left foot. 3. Arthroplasty of 4th digit with K-wire fixation, left foot. 4. Arthroplasty of 5th digit, left foot. 5. Intraoperative use of fluoroscopy. 6. Trigger point shot of cortisone. 7. Application of posterior splint. ANESTHESIA: General. HEMOSTASIS: Pneumatic thigh tourniquet at 350 mmHg. PROCEDURE IN DETAIL: The patient was taken into the operating room and placed on the operating table in supine position. Following induction of general anesthesia by the anesthesiologist, Webril wraps were placed on the patient's left thigh, followed by application of left thigh tourniquet. The left lower extremity was then prepped and draped in the usual aseptic manner. Following procedures were then performed. Procedure #1: Elevating 1st metatarsal osteotomy/Julio bunionectomy, left foot. Attention was directed to the dorsal medial aspect of the 1st MPJ, where a 6 cm linear incision was performed. Incision was deepened down to the joint capsule. Longitudinal capsulotomy was then performed exposing the dorsomedial exostosis of the 1st metatarsal head. Via the use of an oscillating saw, dorsomedial exostosis was excised from the operation site in toto. A V-osteotomy was then performed from medial to lateral. Capital fragment was then transpositioned laterally. A 1 to 2 mm wedge was taken from the plantar cut to allow for proper elevation of the metatarsal head. After that was done, utilizing proper AO technique, a 2.0, 14 mm cortical screw in conjunction with a buried 0.045 K-wire was introduced causing stability of the osteotomy site. All redundant bone medially was excised via the use of an oscillating saw and rotating bur. Procedures #2, 3, and 4: Arthroplasty of 3rd, 4th, and 5th digits with K-wire fixation of 3rd and 4th digits, left foot. Attention was directed to the dorsal aspect of the 3rd and 4th, and 5th toes, where a 3 cm linear incision was performed down to the proximal interphalangeal joint. A transverse capsulotomy was then performed exposing the head of the proximal phalanx of the 3rd, 4th and 5th digits. Via the use of an oscillating saw, head of the proximal phalanges were excised from the operation site in toto. All rough and bony edges were rasped smooth. The 3rd and 4th toes were still noted to be contracted, so a 0.045 K-wire was introduced up to metatarsophalangeal joint to achieve proper anatomical reduction. Procedure #5: Intraoperative use of fluoroscopy was then used to make sure proper alignment and fixation was achieved. Closure was then obtained utilizing 3-0 Vicryl, 4-0 Vicryl, and 4-0 nylon for capsule, subcutaneous tissue, and skin respectively after properly and copiously flushed areas with saline. Procedure #6: Trigger point shot of cortisone was then given to the 1st and 4th interspace of left foot. Then, approximately 15 mL of 0.5% plain Marcaine plus 10 mL of 1% Xylocaine plain were used to achieve local anesthesia of above-mentioned surgical area. Sterile dressing was applied. Upon release of the thigh tourniquet, blood hyperemia was noted immediate to all digits of the patient's left foot. Procedure #7: Application of posterior splint. A properly placed posterior splint was then applied keeping the foot at 90 degrees with respect to the leg to try and prevent any type of postop complications. The patient was then transferred from the OR to recovery room with vital signs stable and neurovascular status intact. No intraoperative complications were encountered. Blood loss from the surgery was minimal. The patient is to remain nonweightbearing with the aid of crutches, keep her foot elevated, and is to apply an ice pack to the ankle joint area. MALIK Houser/GREGORIOL /[id number]
== END | disposition home or self-care (01) ==
LOC: OR 05:33
PROVIDERS: ATTEND Podiatrist Foot Surgery
DX: M20.12 Hallux valgus (acquired), left foot (principal); M20.42 Other hammer toe(s) (acquired), left foot; I10 Essential (primary) hypertension; E11.9 Type 2 diabetes mellitus without complications; E66.01 Morbid (severe) obesity due to excess calories; E03.9 Hypothyroidism, unspecified; K21.9 Gastro-esophageal reflux disease without esophagitis; Z88.2 Allergy status to sulfonamides; Z01.810 Encounter for preprocedural cardiovascular examination; Z01.812 Encounter for preprocedural laboratory examination; Z01.818 Encounter for other preprocedural examination; Z79.4 Long term (current) use of insulin
CPT/HCPCS: 28285 ×3; 28296; 36415 ×2; 71046; 73620; 80048; 82948; 85025; 93005; J0690 ×2; J0720; J1100; J1885; J2001; J2405; J2704; C1713; J1817

== ENCOUNTER 2021-03-30 01:00 | Inpatient (IN) | payer BC ==
[~2021-03-30] VITALS: Ht 172.7 cm; Wt 113.4 kg
[~2021-03-30 01:00] MED LIST changes: -BETAMETHASONE DISODIUM PHOS 6 MG/ML VIAL ONE; -BUPIVACAINE HCL 0.5% INJ 30 ML VIAL INJ ONE; -CEFAZOLIN SOD 1 GM VIAL ONE; -CEFAZOLIN SOD 1 GM/NS 50ML 100 ML IV ONE; -DESFLURANE 240 ML BTL INH ONE; -DEXAMETHASONE SOD PHOS INJ 4 MG/ML VIAL ONE; -INSULIN REGULAR, HUMAN 100 UNIT/1 ML 3ML VIAL ONE; -KETOROLAC TROMETHAMINE 30 MG/ML VIAL ONE; -LIDOCAINE HCL 1% LOCAL INJ 20 ML VIAL ONE; -MUPIROCIN 2% OINT 22 GM TUBE ONE; -ONDANSETRON HCL INJ 2MG/ML 2ML 2 MG/ML VIAL ONE; -PROPOFOL IV EMULSION 10 MG/ML 20 ML VIAL ONE
[2021-03-30] MEDS ORDERED: SODIUM CHLORIDE 0.9% 1000ML 1,000 ML IV STA (01:42)
[2021-03-30] MEDS ORDERED: ONDANSETRON HCL INJ 2MG/ML 2ML 2 MG/ML VIAL IV STA (01:42)
[2021-03-30] MEDS ORDERED: KETOROLAC TROMETHAMINE 30 MG/ML VIAL IV STA (01:42)
[2021-03-30 02:23] LABS: BASOPHILS # (AUTO) 0.1 (0.0-0.1); BASOPHILS % 0.5 % (0.0-1.0); EOSINOPHILS # (AUTO) 0.1 (0.0-0.4); EOSINOPHILS % 0.2 % (0.0-6.0); HEMATOCRIT 40.9 % (34.2-44.1); HEMOGLOBIN 13.1 g/dL (12.0-16.0); LYMPHOCYTES # (AUTO) 2.3 (1.0-3.2); LYMPHOCYTES % 8.8 % (18.0-39.1); MEAN CORPUSCULAR HEMOGLOBIN 29.2 pg (28-32); MEAN CORPUSCULAR VOLUME 91.1 fL (81-99); MONOCYTES # (AUTO) 3.1 (0.2-0.8); MONOCYTES % 11.5 % (4.4-11.3); NEUTROPHILS # (AUTO) 20.8 (2.1-6.9); NEUTROPHILS % 78.2 % (38.7-80.0); PLATELET COUNT 276 x10e3/uL (140-360); RED BLOOD COUNT 4.49 x10e6/uL (3.6-5.1); RED CELL DISTRIBUTION WIDTH 16.6 % (11.7-14.4)
[2021-03-30] MEDS ORDERED: Vancomycin IV 1 GM in SODIUM CHLORIDE 0.9% 250ML 250 ML IV STA (02:30)
[2021-03-30] MEDS ORDERED: PIPERACILLIN/TAZOBACTAM 3.375 GM in SODIUM CHLORIDE 0.9% 50ML 50 ML IV STA (02:30)
[2021-03-30 02:43] LABS: ALBUMIN 2.7 g/dL (3.5-5.0); ALBUMIN/GLOBULIN RATIO 0.5 (0.8-2.0); ANION GAP 18.2 mmol/L (8-16); CALCIUM 9.6 mg/dL (8.4-10.2); CREATININE, SERUM 1.76 mg/dL (0.57-1.11); POTASSIUM 4.2 mmol/L (3.5-5.1)
[2021-03-30 02:45] LABS: PARTIAL THROMBOPLASTIN TIME 35.8 seconds (23.8-35.5)
[2021-03-30 02:48] LABS: INR 1.04; PROTHROMBIN TIME 14.3 seconds (11.9-14.5)
[2021-03-30 02:54] LABS: CREATINE KINASE MB 0.5 ng/mL (0-5.0)
[2021-03-30] MEDS ORDERED: DIATRIZOATE MEGL/DIATRIZOA SOD 30 ML BTL PO ONE (03:15)
[2021-03-30] MEDS ORDERED: ONDANSETRON HCL INJ 2MG/ML 2ML 2 MG/ML VIAL IV ONE (06:30)
[2021-03-30] MEDS: SODIUM CHLORIDE 0.9% 1000ML 1,000 ML IV SCH ×2 (06:31→13:38)
[2021-03-30] MEDS: Morphine 2mg Syringe 2 MG/ML SYR IV PRN ×3 (06:31→22:15)
[2021-03-30 06:36] VITALS: BP 125/72
[2021-03-30] MEDS ORDERED: LEVOTHYROXINE300 MCG PO (06:41)
[2021-03-30] MEDS ORDERED: MONTELUKAST SOD10 MG PO (06:41)
[2021-03-30] MEDS ORDERED: CO Q-10 100 MG1 EACH (06:41)
[2021-03-30 08:09] VITALS: BP 125/72
[2021-03-30 09:43] LABS: BASOPHILS # (AUTO) 0.2 (0.0-0.1); BASOPHILS % 0.6 % (0.0-1.0); EOSINOPHILS % 0.2 % (0.0-6.0); HEMATOCRIT 37.9 % (34.2-44.1); HEMOGLOBIN 11.9 g/dL (12.0-16.0); LYMPHOCYTES # (AUTO) 3.5 (1.0-3.2); LYMPHOCYTES % 13.5 % (18.0-39.1); MEAN CORPUSCULAR HEMOGLOBIN 28.8 pg (28-32); MEAN CORPUSCULAR HGB CONC 31.4 g/dL (31-35); MEAN CORPUSCULAR VOLUME 91.8 fL (81-99); MONOCYTES % 11.8 % (4.4-11.3); NEUTROPHILS # (AUTO) 18.7 (2.1-6.9); NEUTROPHILS % 73.3 % (38.7-80.0); PLATELET COUNT 253 x10e3/uL (140-360); RED BLOOD COUNT 4.13 x10e6/uL (3.6-5.1); RED CELL DISTRIBUTION WIDTH 16.5 % (11.7-14.4)
[2021-03-30 09:54] LABS: ALBUMIN 2.5 g/dL (3.5-5.0); ALBUMIN/GLOBULIN RATIO 0.5 (0.8-2.0); ANION GAP 16.4 mmol/L (8-16); CALCIUM 8.8 mg/dL (8.4-10.2); CREATININE, SERUM 2.04 mg/dL (0.57-1.11); POTASSIUM 4.4 mmol/L (3.5-5.1)
[2021-03-30] MEDS ORDERED: Clindamycin INJ 300 MG/50 ML 50 ML IV SCH (10:00)
[2021-03-30] MEDS ORDERED: CIPROFLOXACIN 200 MG/D5W 100ML 100 ML IV SCH ×2 (11:00→13:00)
[2021-03-30 11:25] LABS: LYMPHOCYTES % (MANUAL) 18 % (19-48); MONOCYTES % (MANUAL) 10 % (3.4-9.0); NEUTROPHILS % (MANUAL) 72 % (40-74); PLATELET ESTIMATE ADEQUATE; PLATELET MORPHOLOGY COMMENT NORMAL; RBC MORPHOLOGY COMMENT NORMAL
[2021-03-30 11:33] VITALS: BP 125/72
[2021-03-30 12:01] VITALS: BP 113/62
[2021-03-30] MEDS ORDERED: PIPERACILLIN/TAZOBACTAM 2.25 GM in SODIUM CHLORIDE 0.9% 50ML 50 ML IV SCH (14:00)
[2021-03-30 16:09] LABS: CLARITY,URINE CLEAR (CLEAR); COLOR,URINE YELLOW (YELLOW); KETONES,URINE TRACE (NEGATIVE); LEUKOCYTE ESTERASE ,URINE NEGATIVE (NEGATIVE); NITRITE,URINE NEGATIVE (NEGATIVE); PROTEIN,URINE DIPSTICK 1+ (NEGATIVE)
[2021-03-30 16:10] LABS: URINE UROBILINOGEN 1 mg/dL (0.2 - 1)
[2021-03-30 16:11] VITALS: BP 119/62
[2021-03-30 16:23] LABS: BACTERIA,URINE MODERATE /HPF; EPITHELIAL CELLS,URINE MANY /LPF; RBC,URINE 0-5 /HPF (0-5); WBC,URINE (MAN) 0-5 /HPF (0-5)
[2021-03-30] MEDS ORDERED: LACTATED RINGER S INJ ONE (18:00)
[2021-03-30] MEDS ORDERED: SODIUM BICARBONATE 8.4% INJ ONE (18:00)
[2021-03-30 19:26] LABS: BASOPHILS # (AUTO) 0.1 (0.0-0.1); BASOPHILS % 0.5 % (0.0-1.0); EOSINOPHILS # (AUTO) 0.8 (0.0-0.4); EOSINOPHILS % 3.7 % (0.0-6.0); HEMATOCRIT 43.3 % (34.2-44.1); HEMOGLOBIN 13.4 g/dL (12.0-16.0); LYMPHOCYTES % 9.1 % (18.0-39.1); MEAN CORPUSCULAR HEMOGLOBIN 28.6 pg (28-32); MEAN CORPUSCULAR HGB CONC 30.9 g/dL (31-35); MEAN CORPUSCULAR VOLUME 92.5 fL (81-99); MONOCYTES # (AUTO) 1.6 (0.2-0.8); MONOCYTES % 7.3 % (4.4-11.3); NEUTROPHILS % 78.9 % (38.7-80.0); PLATELET COUNT 335 x10e3/uL (140-360); RED BLOOD COUNT 4.68 x10e6/uL (3.6-5.1); RED CELL DISTRIBUTION WIDTH 16.7 % (11.7-14.4)
[2021-03-30 19:43] LABS: ANION GAP 17.1 mmol/L (8-16); CALCIUM 9.2 mg/dL (8.4-10.2); CREATININE, SERUM 1.93 mg/dL (0.57-1.11); POTASSIUM 4.1 mmol/L (3.5-5.1)
[2021-03-30 20:00] VITALS: BP 119/62
[2021-03-30] MEDS: ONDANSETRON HCL INJ 2MG/ML 2ML 2 MG/ML VIAL IV PRN (21:30)
[2021-03-30] MEDS ORDERED: METRONIDAZOLE 500MG/NS 100ML 100 ML IV SCH (22:00)
[2021-03-30] MEDS ORDERED: METRONIDAZOLE 500 MG TAB PO STA (23:36)
[2021-03-31] VITALS (8 sets, daily range): BP systolic 96–131; BP diastolic 49–59
[2021-03-31] MEDS: PIPERACILLIN/TAZOBACTAM 3.375 GM in SODIUM CHLORIDE 0.9% 50ML 50 ML IV SCH ×4 (00:24→17:38)
[2021-03-31] MEDS: Morphine 2mg Syringe 2 MG/ML SYR IV PRN ×3 (04:30→18:48)
[2021-03-31 05:31] LABS: BASOPHILS # (AUTO) 0.1 (0.0-0.1); BASOPHILS % 0.7 % (0.0-1.0); EOSINOPHILS # (AUTO) 1.2 (0.0-0.4); EOSINOPHILS % 6.1 % (0.0-6.0); HEMATOCRIT 35.2 % (34.2-44.1); HEMOGLOBIN 11.6 g/dL (12.0-16.0); LYMPHOCYTES # (AUTO) 2.7 (1.0-3.2); MONOCYTES # (AUTO) 1.7 (0.2-0.8); MONOCYTES % 8.6 % (4.4-11.3); NEUTROPHILS # (AUTO) 13.7 (2.1-6.9); NEUTROPHILS % 69.9 % (38.7-80.0); PLATELET COUNT 212 x10e3/uL (140-360); RED CELL DISTRIBUTION WIDTH 16.3 % (11.7-14.4)
[2021-03-31 05:44] LABS: ANION GAP 14.8 mmol/L (8-16); CALCIUM 8.2 mg/dL (8.4-10.2); CREATININE, SERUM 1.97 mg/dL (0.57-1.11); POTASSIUM 3.8 mmol/L (3.5-5.1)
[2021-03-31] MEDS ORDERED: METRONIDAZOLE 500MG/NS 100ML 100 ML IV SCH (06:00)
[2021-03-31] MEDS ORDERED: METRONIDAZOLE 500 MG TAB PO SCH (06:00)
[2021-03-31] MEDS: METRONIDAZOLE 500 MG TAB PO SCH ×3 (06:18→17:38)
[2021-03-31] MEDS ORDERED: PIPERACILLIN/TAZOBACTAM 2.25 GM in SODIUM CHLORIDE 0.9% 50ML 50 ML IV SCH (08:00)
[2021-03-31] MEDS: ONDANSETRON HCL INJ 2MG/ML 2ML 2 MG/ML VIAL IV PRN ×2 (10:46→18:48)
[2021-03-31] MEDS ORDERED: SODIUM CHLORIDE 0.9% 1000ML 1,000 ML IV STA (16:13)
[2021-03-31] MEDS: SODIUM CHLORIDE 0.9% 1000ML 1,000 ML IV SCH (16:23)
[2021-03-31] MEDS ORDERED: Vancomycin IV 1 GM in SODIUM CHLORIDE 0.9% 250ML 250 ML IV ONE (16:45)
[2021-03-31] MEDS: SODIUM BICARBONATE 650 MG TAB PO SCH (17:38)
[2021-03-31] MEDS ORDERED: DEXTROSE 50% SYRINGE 50 ML IV STA ×2 (20:02→22:37)
[2021-03-31] MEDS ORDERED: DEXTROSE 50% SYRINGE 50 ML IV ONE ×2 (20:20→22:51)
[2021-03-31] MEDS ORDERED: DEXTROSE 5%/0.9% SOD CHL 1,000 ML IV SCH (22:45)
[2021-04-01] VITALS (8 sets, daily range): BP systolic 118–152; BP diastolic 51–73
[2021-04-01] MEDS: PIPERACILLIN/TAZOBACTAM 3.375 GM in SODIUM CHLORIDE 0.9% 50ML 50 ML IV SCH ×4 (00:16→17:47)
[2021-04-01] MEDS: METRONIDAZOLE 500 MG TAB PO SCH ×4 (00:16→17:47)
[2021-04-01] MEDS: SODIUM CHLORIDE 0.9% 1000ML 1,000 ML IV SCH (00:17)
[2021-04-01] MEDS ORDERED: LACTATED RINGER'S 1,000 ML ONE (02:15)
[2021-04-01] MEDS ORDERED: DEXTROSE 10% 1,000 ML IV ONE (02:23)
[2021-04-01] MEDS: DEXTROSE 10% 1,000 ML IV SCH ×2 (02:44→16:28)
[2021-04-01 05:59] LABS: BASOPHILS # (AUTO) 0.1 (0.0-0.1); EOSINOPHILS # (AUTO) 1.5 (0.0-0.4); EOSINOPHILS % 11.3 % (0.0-6.0); HEMATOCRIT 35.8 % (34.2-44.1); HEMOGLOBIN 11.5 g/dL (12.0-16.0); LYMPHOCYTES # (AUTO) 1.9 (1.0-3.2); LYMPHOCYTES % 14.3 % (18.0-39.1); MEAN CORPUSCULAR HEMOGLOBIN 28.6 pg (28-32); MEAN CORPUSCULAR HGB CONC 32.1 g/dL (31-35); MEAN CORPUSCULAR VOLUME 89.1 fL (81-99); MONOCYTES # (AUTO) 1.5 (0.2-0.8); NEUTROPHILS # (AUTO) 8.1 (2.1-6.9); NEUTROPHILS % 61.8 % (38.7-80.0); PLATELET COUNT 297 x10e3/uL (140-360); RED BLOOD COUNT 4.02 x10e6/uL (3.6-5.1); RED CELL DISTRIBUTION WIDTH 16.2 % (11.7-14.4)
[2021-04-01 06:24] LABS: ALBUMIN 2.3 g/dL (3.5-5.0); ALBUMIN/GLOBULIN RATIO 0.5 (0.8-2.0); ANION GAP 14.2 mmol/L (8-16); CALCIUM 8.1 mg/dL (8.4-10.2); CREATININE, SERUM 1.55 mg/dL (0.57-1.11); POTASSIUM 4.2 mmol/L (3.5-5.1)
[2021-04-01] MEDS: SODIUM BICARBONATE 650 MG TAB PO SCH ×2 (08:04→17:47)
[2021-04-01 17:31] LABS: CREATININE,URINE RANDOM 26.91 mg/dL (47-110); TOTAL PROTEIN, URINE < 6.8 mg/dL (1-14)
[2021-04-01] MEDS: Morphine 2mg Syringe 2 MG/ML SYR IV PRN (21:21)
[2021-04-02] VITALS (8 sets, daily range): BP systolic 131–157; BP diastolic 51–68
[2021-04-02] MEDS: METRONIDAZOLE 500 MG TAB PO SCH ×5 (00:46→23:17)
[2021-04-02] MEDS: PIPERACILLIN/TAZOBACTAM 3.375 GM in SODIUM CHLORIDE 0.9% 50ML 50 ML IV SCH ×5 (00:46→23:17)
[2021-04-02] MEDS: Morphine 2mg Syringe 2 MG/ML SYR IV PRN ×3 (03:50→23:18)
[2021-04-02] MEDS: DEXTROSE 10% 1,000 ML IV SCH ×2 (06:06→22:49)
[2021-04-02 06:13] LABS: BASOPHILS # (AUTO) 0.1 (0.0-0.1); BASOPHILS % 1.2 % (0.0-1.0); EOSINOPHILS # (AUTO) 1.4 (0.0-0.4); EOSINOPHILS % 13.6 % (0.0-6.0); HEMOGLOBIN 11.2 g/dL (12.0-16.0); LYMPHOCYTES # (AUTO) 1.8 (1.0-3.2); LYMPHOCYTES % 17.2 % (18.0-39.1); MEAN CORPUSCULAR HEMOGLOBIN 28.6 pg (28-32); MEAN CORPUSCULAR VOLUME 89.5 fL (81-99); MONOCYTES # (AUTO) 1.5 (0.2-0.8); MONOCYTES % 14.2 % (4.4-11.3); NEUTROPHILS # (AUTO) 5.5 (2.1-6.9); NEUTROPHILS % 52.9 % (38.7-80.0); PLATELET COUNT 312 x10e3/uL (140-360); RED BLOOD COUNT 3.91 x10e6/uL (3.6-5.1); RED CELL DISTRIBUTION WIDTH 16.5 % (11.7-14.4)
[2021-04-02 06:46] LABS: ANION GAP 12.2 mmol/L (8-16); CALCIUM 8.2 mg/dL (8.4-10.2); CREATININE, SERUM 1.31 mg/dL (0.57-1.11); POTASSIUM 4.2 mmol/L (3.5-5.1)
[2021-04-02] MEDS: SODIUM BICARBONATE 650 MG TAB PO SCH ×2 (08:06→17:27)
[2021-04-02] MEDS: LEVOTHYROXINE SODIUM 100 MCG TAB PO SCH (11:10)
[2021-04-02] MEDS: LIDOCAINE 4% PATCH TP SCH (14:00)
[2021-04-03] VITALS (10 sets, daily range): BP systolic 104–168; BP diastolic 65–90
[2021-04-03] MEDS: PIPERACILLIN/TAZOBACTAM 3.375 GM in SODIUM CHLORIDE 0.9% 50ML 50 ML IV SCH ×3 (06:45→18:00)
[2021-04-03] MEDS: LEVOTHYROXINE SODIUM 100 MCG TAB PO SCH (06:45)
[2021-04-03] MEDS: METRONIDAZOLE 500 MG TAB PO SCH ×3 (06:45→18:00)
[2021-04-03 07:41] LABS: BASOPHILS # (AUTO) 0.2 (0.0-0.1); BASOPHILS % 1.5 % (0.0-1.0); EOSINOPHILS # (AUTO) 1.3 (0.0-0.4); EOSINOPHILS % 12.4 % (0.0-6.0); HEMOGLOBIN 11.5 g/dL (12.0-16.0); LYMPHOCYTES # (AUTO) 2.4 (1.0-3.2); LYMPHOCYTES % 23.4 % (18.0-39.1); MEAN CORPUSCULAR HEMOGLOBIN 29.3 pg (28-32); MEAN CORPUSCULAR HGB CONC 31.9 g/dL (31-35); MEAN CORPUSCULAR VOLUME 91.8 fL (81-99); MONOCYTES # (AUTO) 1.5 (0.2-0.8); MONOCYTES % 14.4 % (4.4-11.3); NEUTROPHILS # (AUTO) 4.9 (2.1-6.9); NEUTROPHILS % 47.5 % (38.7-80.0); PLATELET COUNT 346 x10e3/uL (140-360); RED BLOOD COUNT 3.92 x10e6/uL (3.6-5.1); RED CELL DISTRIBUTION WIDTH 16.4 % (11.7-14.4)
[2021-04-03 08:09] LABS: ALBUMIN 2.2 g/dL (3.5-5.0); ALBUMIN/GLOBULIN RATIO 0.4 (0.8-2.0); ANION GAP 14.3 mmol/L (8-16); CALCIUM 8.3 mg/dL (8.4-10.2); CREATININE, SERUM 1.19 mg/dL (0.57-1.11); POTASSIUM 4.3 mmol/L (3.5-5.1)
[2021-04-03] MEDS ORDERED: FENTANYL CITRATE/PF 100MCG/2 ML INJ ONE (12:24)
[2021-04-03] MEDS ORDERED: MIDAZOLAM HCL 2 MG/2 ML VIAL ONE (12:24)
[2021-04-03] MEDS ORDERED: PROPOFOL IV EMULSION 10 MG/ML 20 ML VIAL ONE (12:27)
[2021-04-03] MEDS ORDERED: SEVOFLURANE INHAL SOLN 250 ML PEN BTL ONE (12:27)
[2021-04-03] MEDS ORDERED: ONDANSETRON HCL INJ 2MG/ML 2ML 2 MG/ML VIAL ONE (12:27)
[2021-04-03] MEDS ORDERED: POVIDONE IODINE 0.05% 0.05 % ML PO ONE (12:27)
[2021-04-03] MEDS ORDERED: LIDOCAINE HCL 2% LOCAL INJ 5 ML SDV VIAL INJ ONE (12:27)
[2021-04-03] MEDS ORDERED: DEXAMETHASONE SOD PHOS INJ 4 MG/ML SDV ONE (12:27)
[2021-04-03] MEDS: SODIUM BICARBONATE 650 MG TAB PO SCH (13:09)
[2021-04-03] MEDS: LIDOCAINE 4% PATCH TP SCH (13:09)
[2021-04-03] MEDS: LISINOPRIL 2.5 MG TAB PO SCH (13:11)
[2021-04-04] VITALS (7 sets, daily range): BP systolic 101–128; BP diastolic 63–68
[2021-04-04] MEDS: METRONIDAZOLE 500 MG TAB PO SCH ×5 (00:30→23:52)
[2021-04-04] MEDS: Morphine 2mg Syringe 2 MG/ML SYR IV PRN (03:50)
[2021-04-04] MEDS: PIPERACILLIN/TAZOBACTAM 3.375 GM in SODIUM CHLORIDE 0.9% 50ML 50 ML IV SCH ×6 (05:56→23:52)
[2021-04-04] MEDS: HYDROCODONE/APAP 7.5MG-325MG 1 EA TAB PO PRN ×2 (05:56→16:23)
[2021-04-04] MEDS: LEVOTHYROXINE SODIUM 100 MCG TAB PO SCH (05:56)
[2021-04-04 06:04] LABS: BASOPHILS # (AUTO) 0.1 (0.0-0.1); BASOPHILS % 0.6 % (0.0-1.0); EOSINOPHILS % 0.1 % (0.0-6.0); HEMATOCRIT 36.2 % (34.2-44.1); HEMOGLOBIN 11.8 g/dL (12.0-16.0); LYMPHOCYTES # (AUTO) 2.2 (1.0-3.2); MEAN CORPUSCULAR HEMOGLOBIN 29.1 pg (28-32); MEAN CORPUSCULAR HGB CONC 32.6 g/dL (31-35); MEAN CORPUSCULAR VOLUME 89.2 fL (81-99); MONOCYTES # (AUTO) 1.4 (0.2-0.8); MONOCYTES % 9.6 % (4.4-11.3); NEUTROPHILS # (AUTO) 10.7 (2.1-6.9); NEUTROPHILS % 73.3 % (38.7-80.0); PLATELET COUNT 386 x10e3/uL (140-360); RED BLOOD COUNT 4.06 x10e6/uL (3.6-5.1); RED CELL DISTRIBUTION WIDTH 16.1 % (11.7-14.4)
[2021-04-04 06:45] LABS: ALBUMIN 2.2 g/dL (3.5-5.0); ALBUMIN/GLOBULIN RATIO 0.4 (0.8-2.0); ANION GAP 14.3 mmol/L (8-16); CALCIUM 8.4 mg/dL (8.4-10.2); CREATININE, SERUM 1.15 mg/dL (0.57-1.11); MAGNESIUM 1.5 MG/DL (1.3-2.1); POTASSIUM 4.3 mmol/L (3.5-5.1)
[2021-04-04] MEDS: SODIUM BICARBONATE 650 MG TAB PO SCH ×3 (08:20→18:07)
[2021-04-04] MEDS: LIDOCAINE 4% PATCH TP SCH (08:22)
[2021-04-04] MEDS: LISINOPRIL 2.5 MG TAB PO SCH (08:25)
[2021-04-05 00:34] VITALS: BP 147/75
[2021-04-05 05:15] VITALS: BP 121/71
[2021-04-05] MEDS: PIPERACILLIN/TAZOBACTAM 3.375 GM in SODIUM CHLORIDE 0.9% 50ML 50 ML IV SCH ×3 (05:57→17:45)
[2021-04-05] MEDS: LEVOTHYROXINE SODIUM 100 MCG TAB PO SCH (05:57)
[2021-04-05] MEDS: METRONIDAZOLE 500 MG TAB PO SCH ×3 (05:57→17:45)
[2021-04-05 08:21] VITALS: BP 130/68
[2021-04-05] MEDS: LIDOCAINE 4% PATCH TP SCH (08:28)
[2021-04-05] MEDS: SODIUM BICARBONATE 650 MG TAB PO SCH ×2 (08:28→16:03)
[2021-04-05] MEDS: LISINOPRIL 2.5 MG TAB PO SCH (08:29)
[2021-04-05 11:38] VITALS: BP 134/69
[2021-04-05 15:47] VITALS: BP 145/75
[2021-04-05] MEDS: HYDROCODONE/APAP 7.5MG-325MG 1 EA TAB PO PRN ×3 (17:30→21:30)
[2021-04-05 19:23] VITALS: BP 130/64
[2021-04-05] MEDS ORDERED: DIPHENHYDRAMINE HCL 25 MG CAP PO PRN (20:00)
[2021-04-05] MEDS ORDERED: HYDROCORTISONE 1% CREAM 30 GM TUBE TOP PRN (20:00)
[2021-04-06] VITALS: BP 120/65
[2021-04-06] MEDS: PIPERACILLIN/TAZOBACTAM 3.375 GM in SODIUM CHLORIDE 0.9% 50ML 50 ML IV SCH ×2 (00:45→05:28)
[2021-04-06] MEDS: METRONIDAZOLE 500 MG TAB PO SCH ×3 (01:39→12:53)
[2021-04-06] MEDS: HYDROCODONE/APAP 7.5MG-325MG 1 EA TAB PO PRN (04:36)
[2021-04-06 04:50] VITALS: BP 126/74
[2021-04-06 05:10] LABS: BASOPHILS # (AUTO) 0.2 (0.0-0.1); BASOPHILS % 1.2 % (0.0-1.0); EOSINOPHILS # (AUTO) 0.6 (0.0-0.4); EOSINOPHILS % 4.5 % (0.0-6.0); HEMATOCRIT 36.5 % (34.2-44.1); HEMOGLOBIN 11.9 g/dL (12.0-16.0); LYMPHOCYTES # (AUTO) 4.6 (1.0-3.2); LYMPHOCYTES % 34.9 % (18.0-39.1); MEAN CORPUSCULAR HEMOGLOBIN 28.7 pg (28-32); MEAN CORPUSCULAR HGB CONC 32.6 g/dL (31-35); MEAN CORPUSCULAR VOLUME 88.2 fL (81-99); MONOCYTES # (AUTO) 1.1 (0.2-0.8); MONOCYTES % 8.3 % (4.4-11.3); NEUTROPHILS # (AUTO) 6.5 (2.1-6.9); NEUTROPHILS % 49.5 % (38.7-80.0); PLATELET COUNT 375 x10e3/uL (140-360); RED BLOOD COUNT 4.14 x10e6/uL (3.6-5.1); RED CELL DISTRIBUTION WIDTH 16.7 % (11.7-14.4)
[2021-04-06] MEDS: LEVOTHYROXINE SODIUM 100 MCG TAB PO SCH (05:28)
[2021-04-06 05:42] LABS: ALBUMIN 2.3 g/dL (3.5-5.0); ALBUMIN/GLOBULIN RATIO 0.5 (0.8-2.0); ANION GAP 15.8 mmol/L (8-16); CALCIUM 8.3 mg/dL (8.4-10.2); CREATININE, SERUM 1.26 mg/dL (0.57-1.11); POTASSIUM 3.8 mmol/L (3.5-5.1)
[2021-04-06 08:11] VITALS: BP 146/78
[2021-04-06 08:12] VITALS: BP 146/78
[2021-04-06] MEDS: SODIUM BICARBONATE 650 MG TAB PO SCH (09:23)
[2021-04-06] MEDS: LISINOPRIL 2.5 MG TAB PO SCH (09:23)
[2021-04-06] MEDS: LIDOCAINE 4% PATCH TP SCH (09:23)
[2021-04-06 09:30] VITALS: BP 146/78
[2021-04-06 10:43] LABS: BAND NEUTROPHILS % (MANUAL) 1 %; EOSINOPHILS % (MANUAL) 5 % (0-7); LYMPHOCYTES % (MANUAL) 36 % (19-48); MONOCYTES % (MANUAL) 2 % (3.4-9.0); NEUTROPHILS % (MANUAL) 54 % (40-74)
[2021-04-06 10:44] LABS: ANISOCYTOSIS SLIGHT; PLATELET ESTIMATE ADEQUATE; PLATELET MORPHOLOGY COMMENT NORMAL; RBC MORPHOLOGY COMMENT NORMAL
[2021-04-06 11:48] VITALS: BP 135/87
[2021-04-06] MEDS ORDERED: CIPROFLOXACIN 400 MG/D5W 200ML 200 ML IV SCH (12:15)
== END 2021-04-06 15:20 | disposition home or self-care (01) | DRG 907 ==
LOC: ER 01:21 → ERHOLD 05:07 → MED/SURG3 06:08
PROVIDERS: ADMIT Family Medicine; ATTEND Family Medicine
PROC: 0H9U0ZZ Drainage of Left Breast, Open Approach (ICD-10-PCS; principal; 2021-04-03 10:30)
DX: L76.82 Other postprocedural complications of skin and subcutaneous tissue (principal); N17.0 Acute kidney failure with tubular necrosis; K57.32 Diverticulitis of large intestine without perforation or abscess without bleeding; N17.9 Acute kidney failure, unspecified; L76.32 Postprocedural hematoma of skin and subcutaneous tissue following other procedure; E11.9 Type 2 diabetes mellitus without complications; I12.9 Hypertensive chronic kidney disease with stage 1 through stage 4 chronic kidney disease, or unspecified chronic kidney disease; E78.5 Hyperlipidemia, unspecified; N61.1 Abscess of the breast and nipple; K76.0 Fatty (change of) liver, not elsewhere classified; N18.32 Chronic kidney disease, stage 3b; K21.9 Gastro-esophageal reflux disease without esophagitis; E66.01 Morbid (severe) obesity due to excess calories; Z85.3 Personal history of malignant neoplasm of breast; Z85.850 Personal history of malignant neoplasm of thyroid; Z88.2 Allergy status to sulfonamides; Z88.8 Allergy status to other drugs, medicaments and biological substances; Z68.38 Body mass index [BMI] 38.0-38.9, adult; Z86.010 Personal history of colon polyps; E05.90 Thyrotoxicosis, unspecified without thyrotoxic crisis or storm; Z20.822 Contact with and (suspected) exposure to COVID-19; Z79.4 Long term (current) use of insulin
CPT/HCPCS: 36415; 36568; 71045; 74176; 76770; 78306; 80048; 80053; 81001; 82550; 82553; 82570; 82948; 83605; 83690; 83735; 83880; 84156; 84484; 85025; 85610; 85730; 87040; 87071; 87075; 87086; 87186; 87205; 93005; 94799; 96360; 99284; A9503; J1100; J1885; J2001; J2250; J2270; J2405; J2543; J3010; J3370; J7030; J7042; J7050; J7121; J7799; U0002

== ENCOUNTER 2022-03-29 07:05 | Inpatient (IN) | payer BC ==
[~2022-03-29] VITALS: Ht 172.7 cm; Wt 113.4 kg
[~2022-03-29 07:05] MED LIST changes: +CO Q-10 100 MG1 EACH; +FEMARA2.5 MG PO; +LEVOTHYROXINE300 MCG PO; +MONTELUKAST SOD10 MG PO; +PROPANOLOL PO; +PROTONIX20 MG PO; +VITAMIN B COMP1 EACH PO
[2022-03-29] MEDS ORDERED: OCTREOTIDE ACETATE 0.05 MG/ML AMP IV STA (07:18)
[2022-03-29] MEDS ORDERED: ONDANSETRON HCL INJ 2MG/ML 2ML 2 MG/ML VIAL IV STA ×2 (07:18→07:46)
[2022-03-29] MEDS ORDERED: OCTREOTIDE ACETATE 400 MCG in SODIUM CHLORIDE 0.9% 250ML 200 ML IV SCH (07:30)
[2022-03-29] MEDS ORDERED: SODIUM CHLORIDE 0.9% 500ML 500 ML IV ONE (07:30)
[2022-03-29 07:59] LABS: BASOPHILS # (AUTO) 0.1 (0.0-0.1); BASOPHILS % 0.9 % (0.0-1.0); EOSINOPHILS # (AUTO) 0.1 (0.0-0.4); HEMATOCRIT 21.4 % (34.2-44.1); LYMPHOCYTES # (AUTO) 1.9 (1.0-3.2); LYMPHOCYTES % 16.3 % (18.0-39.1); MEAN CORPUSCULAR HEMOGLOBIN 31.7 pg (28-32); MEAN CORPUSCULAR HGB CONC 32.7 g/dL (31-35); MEAN CORPUSCULAR VOLUME 96.8 fL (81-99); MONOCYTES # (AUTO) 0.7 (0.2-0.8); MONOCYTES % 5.8 % (4.4-11.3); NEUTROPHILS # (AUTO) 8.8 (2.1-6.9); NEUTROPHILS % 75.5 % (38.7-80.0); PLATELET COUNT 287 x10e3/uL (140-360); RED BLOOD COUNT 2.21 x10e6/uL (3.6-5.1); RED CELL DISTRIBUTION WIDTH 18.4 % (11.7-14.4)
[2022-03-29] MEDS ORDERED: SODIUM CHLORIDE 0.9% 1000ML 1,000 ML ONE (07:59)
[2022-03-29 08:14] LABS: INR 1.11; PROTHROMBIN TIME 14.5 seconds (11.9-14.5)
[2022-03-29 08:15] LABS: PARTIAL THROMBOPLASTIN TIME 30.7 seconds (23.8-35.5)
[2022-03-29] MEDS ORDERED: SODIUM CHLORIDE 0.9% 250ML 250 ML IV ONE ×2 (08:15)
[2022-03-29] MEDS ORDERED: OCTREOTIDE ACETATE 500 MCG in SODIUM CHLORIDE 0.9% 250ML 250 ML IV SCH (08:15)
[2022-03-29 08:25] LABS: ALANINE AMINOTRANSFERASE 52 IU/L (0-55); ALBUMIN 2.4 g/dL (3.5-5.0); ALBUMIN/GLOBULIN RATIO 0.5 (0.8-2.0); ALKALINE PHOSPHATASE 213 IU/L (40-150); ANION GAP 13.8 mmol/L (8-16); BLOOD UREA NITROGEN 44 mg/dL (7-26); BUN/CREATININE RATIO 30 (6-25); CALCIUM 8.6 mg/dL (8.4-10.2); CARBON DIOXIDE 21 mmol/L (22-29); CHLORIDE 113 mmol/L (98-107); CREATINE KINASE 72 IU/L (29-168); CREATININE, SERUM 1.48 mg/dL (0.57-1.11); GLUCOSE 179 mg/dL (74-118); LIPASE 40 U/L (8-78); MAGNESIUM 1.7 MG/DL (1.3-2.1); POTASSIUM 4.8 mmol/L (3.5-5.1); SODIUM 143 mmol/L (136-145)
[2022-03-29] MEDS ORDERED: DESMOPRESSIN ACETATE 4 MCG/ML VIAL IV ONE (08:30)
[2022-03-29] MEDS ORDERED: ONDANSETRON HCL INJ 2MG/ML 2ML 2 MG/ML VIAL IV PRN (08:45)
[2022-03-29] MEDS ORDERED: SODIUM CHLORIDE 0.9% 1000ML 1,000 ML IV ONE (09:00)
[2022-03-29] MEDS ORDERED: SODIUM CHLORIDE 0.9% 1000ML 3,400 ML IV ONE (09:00)
[2022-03-29] MEDS ORDERED: SODIUM CHLORIDE 0.9% 250ML 250 ML ONE ×2 (11:41→16:48)
[2022-03-29] MEDS: METOCLOPRAMIDE HCL 10 MG/2ML VIAL IV SCH ×2 (16:31→18:46)
[2022-03-29 17:08] LABS: MEAN CORPUSCULAR HEMOGLOBIN 30.3 pg (28-32); MEAN CORPUSCULAR HGB CONC 30.3 g/dL (31-35); PLATELET COUNT 237 x10e3/uL (140-360); RED BLOOD COUNT 2.18 x10e6/uL (3.6-5.1); RED CELL DISTRIBUTION WIDTH 18.9 % (11.7-14.4)
[2022-03-29 17:09] LABS: HEMATOCRIT 21.8 % (34.2-44.1); HEMOGLOBIN 6.6 g/dL (12.0-16.0)
[2022-03-29 17:13] LABS: NEUTROPHILS % 76.3 % (38.7-80.0)
[2022-03-29 17:14] LABS: BASOPHILS % 0.3 % (0.0-1.0); EOSINOPHILS % 0.1 % (0.0-6.0); LYMPHOCYTES % 15.5 % (18.0-39.1); MONOCYTES % 7.1 % (4.4-11.3)
[2022-03-29] MEDS ORDERED: INSULIN REGULAR, HUMAN 100 UNIT/1 ML SQ ONE (18:15)
[2022-03-29] MEDS ORDERED: INSULIN REGULAR, HUMAN 100 UNIT/1 ML ONE (18:21)
== END 2022-03-29 19:34 | disposition home or self-care (01) | DRG 433 ==
LOC: ER 07:10 → ERHOLD 08:44
PROVIDERS: ADMIT Family Medicine; ATTEND Family Medicine
PROC: 02HV33Z Insertion of Infusion Device into Superior Vena Cava, Percutaneous Approach (ICD-10-PCS; principal; 2022-03-29)
PROC: 30243N1 Transfusion of Nonautologous Red Blood Cells into Central Vein, Percutaneous Approach (ICD-10-PCS; 2022-03-29)
PROC: 30243K1 Transfusion of Nonautologous Frozen Plasma into Central Vein, Percutaneous Approach (ICD-10-PCS; 2022-03-29)
DX: K74.60 Unspecified cirrhosis of liver (principal); D62 Acute posthemorrhagic anemia; K92.2 Gastrointestinal hemorrhage, unspecified; I85.10 Secondary esophageal varices without bleeding; Z85.3 Personal history of malignant neoplasm of breast; Z88.2 Allergy status to sulfonamides; K76.0 Fatty (change of) liver, not elsewhere classified; E03.9 Hypothyroidism, unspecified; Z20.822 Contact with and (suspected) exposure to COVID-19; E11.9 Type 2 diabetes mellitus without complications
CPT/HCPCS: 0223U; 36415; 36569; 71045; 80053; 82140; 82550; 82553; 82948; 83690; 83735; 84484; 85025; 85610; 85730; 86850; 86900; 86920; 93005; 94799; 99285; J1817; J2353; J2354; J2405; J2765; J7030; J7040; J7050; P9016; P9017

== ENCOUNTER 2023-06-12 13:10 | Inpatient (IN) | payer BC ==
[~2023-06-12] VITALS: Ht 172.7 cm; Wt 114.1 kg
[~2023-06-12 13:10] MED LIST changes: +CIPRO500 MG PO; +CYMBALTA20 MG PO; +DICYCLOMINE HCL20 MG PO; +DOXYCYCLINE HY100 M3 PO; +OMEPRAZOLE40 MG PO
[2023-06-12] MEDS ORDERED: SODIUM CHLORIDE 0.9% 1000ML 1,000 ML IV STA (13:24)
[2023-06-12] MEDS ORDERED: ONDANSETRON HCL INJ 2MG/ML 2ML 2 MG/ML VIAL IV PRN (13:30)
[2023-06-12 16:11] LABS: BASOPHILS # (AUTO) 0.2 (0.0-0.1); BASOPHILS % 0.8 % (0.0-1.0); EOSINOPHILS # (AUTO) 0.7 (0.0-0.4); EOSINOPHILS % 3.7 % (0.0-6.0); HEMATOCRIT 23.4 % (34.2-44.1); MEAN CORPUSCULAR HEMOGLOBIN 33.1 pg (28-32); MEAN CORPUSCULAR HGB CONC 34.2 g/dL (31-35); MEAN CORPUSCULAR VOLUME 96.7 fL (81-99); MONOCYTES # (AUTO) 1.6 (0.2-0.8); MONOCYTES % 9.1 % (4.4-11.3); NEUTROPHILS # (AUTO) 11.7 (2.1-6.9); NEUTROPHILS % 66.3 % (38.7-80.0); PLATELET COUNT 168 x10e3/uL (140-360); RED BLOOD COUNT 2.42 x10e6/uL (3.6-5.1); WHITE BLOOD COUNT 17.68 x10e3/uL (4.8-10.8)
[2023-06-12 16:29] LABS: ALBUMIN 2.1 g/dL (3.5-5.0); ALBUMIN/GLOBULIN RATIO 0.4 (0.8-2.0); ANION GAP 11.8 mmol/L (8-16); BILIRUBIN,TOTAL 2.6 mg/dL (0.2-1.2); CALCIUM 8.1 mg/dL (8.4-10.2); CREATININE, SERUM 0.71 mg/dL (0.57-1.11); POTASSIUM 3.8 mmol/L (3.5-5.1); TOTAL PROTEIN 7.6 g/dL (6.5-8.1)
[2023-06-12] MEDS ORDERED: IOPAMIDOL 370 MG/ML 100 ML INFUS..BTL INJ ONE (16:48)
[2023-06-12 17:29] LABS: INR 1.57
[2023-06-12 17:30] LABS: PARTIAL THROMBOPLASTIN TIME 36.8 seconds (23.8-35.5)
[2023-06-12] MEDS ORDERED: PIPERACILLIN/TAZOBACTAM 4.5 GM in SODIUM CHLORIDE 0.9% 100 ML IV ONE (18:15)
[2023-06-12] MEDS: SODIUM CHLORIDE 0.9% 1000ML 1,000 ML IV SCH (18:43)
[2023-06-12] MEDS: Vancomycin IV 1 GM in SODIUM CHLORIDE 0.9% 250ML 250 ML IV SCH (18:43)
[2023-06-12] MEDS: ONDANSETRON HCL INJ 2MG/ML 2ML 2 MG/ML VIAL IV PRN (18:44)
[2023-06-12] MEDS: Morphine 4mg INJECTION 4 MG/ML INJ IV PRN (18:44)
[2023-06-12] MEDS ORDERED: SODIUM CHLORIDE 0.9% 100 ML ONE (20:09)
[2023-06-12 20:10] VITALS: BP 153/70; PULSE 91; RESP 20; TEMP 98; O2SAT 95
[2023-06-12 20:45] VITALS: BP 153/70; PULSE 91; RESP 20; TEMP 98; O2SAT 95
[2023-06-12] MEDS ORDERED: DEXTROSE 50% SYRINGE 50 ML IV PRN (20:45)
[2023-06-12 21:00] VITALS: BP 153/70; PULSE 91; RESP 20; TEMP 98; O2SAT 95
[2023-06-12] MEDS: INSULIN LISPRO 100 UNIT/1 ML 3ML VIAL SQ SCH (21:00)
[2023-06-12] MEDS: PIPERACILLIN/TAZOBACTAM 4.5 GM in SODIUM CHLORIDE 0.9% 100 ML IV ONE (21:06)
[2023-06-12 21:30] VITALS: PULSE 90; RESP 20; O2SAT 93
[2023-06-13] VITALS (7 sets, daily range): BP systolic 128–157; BP diastolic 56–66; PULSE 82–96; RESP 18–20; TEMP 97.3–98.4; O2SAT 90–99
[2023-06-13 06:22] LABS: BASOPHILS # (AUTO) 0.2 (0.0-0.1); BASOPHILS % 1.1 % (0.0-1.0); EOSINOPHILS # (AUTO) 0.7 (0.0-0.4); EOSINOPHILS % 4.1 % (0.0-6.0); HEMOGLOBIN 7.3 g/dL (12.0-16.0); LYMPHOCYTES # (AUTO) 2.5 (1.0-3.2); LYMPHOCYTES % 15.3 % (18.0-39.1); MEAN CORPUSCULAR HEMOGLOBIN 33.2 pg (28-32); MEAN CORPUSCULAR HGB CONC 33.2 g/dL (31-35); MONOCYTES # (AUTO) 1.4 (0.2-0.8); MONOCYTES % 8.6 % (4.4-11.3); NEUTROPHILS # (AUTO) 11.1 (2.1-6.9); NEUTROPHILS % 68.5 % (38.7-80.0); PLATELET COUNT 192 x10e3/uL (140-360); RED CELL DISTRIBUTION WIDTH 22.5 % (11.7-14.4); WHITE BLOOD COUNT 16.17 x10e3/uL (4.8-10.8)
[2023-06-13 06:56] LABS: ANION GAP 9.9 mmol/L (8-16); CALCIUM 8.1 mg/dL (8.4-10.2); CREATININE, SERUM 0.73 mg/dL (0.57-1.11); POTASSIUM 3.9 mmol/L (3.5-5.1)
[2023-06-13] MEDS: CEFTRIAXONE 2 GM in SODIUM CHLORIDE 0.9% 100 ML IV SCH (21:01)
[2023-06-14] VITALS (8 sets, daily range): BP systolic 112–143; BP diastolic 51–69; PULSE 92–98; RESP 19–21; TEMP 97.7–98.4; O2SAT 91–99
[2023-06-14 12:01] LABS: BASOPHILS # (AUTO) 0.2 (0.0-0.1); BASOPHILS % 0.9 % (0.0-1.0); EOSINOPHILS # (AUTO) 0.7 (0.0-0.4); EOSINOPHILS % 3.8 % (0.0-6.0); HEMATOCRIT 22.6 % (34.2-44.1); HEMOGLOBIN 7.4 g/dL (12.0-16.0); LYMPHOCYTES # (AUTO) 2.1 (1.0-3.2); LYMPHOCYTES % 12.5 % (18.0-39.1); MEAN CORPUSCULAR HEMOGLOBIN 33.3 pg (28-32); MEAN CORPUSCULAR HGB CONC 32.7 g/dL (31-35); MEAN CORPUSCULAR VOLUME 101.8 fL (81-99); MONOCYTES # (AUTO) 1.5 (0.2-0.8); MONOCYTES % 8.6 % (4.4-11.3); NEUTROPHILS # (AUTO) 12.5 (2.1-6.9); NEUTROPHILS % 72.9 % (38.7-80.0); PLATELET COUNT 187 x10e3/uL (140-360); RED BLOOD COUNT 2.22 x10e6/uL (3.6-5.1); RED CELL DISTRIBUTION WIDTH 22.2 % (11.7-14.4); WHITE BLOOD COUNT 17.09 x10e3/uL (4.8-10.8)
[2023-06-14 12:18] LABS: ALBUMIN/GLOBULIN RATIO 0.4 (0.8-2.0); ANION GAP 10.1 mmol/L (8-16); BILIRUBIN,TOTAL 2.1 mg/dL (0.2-1.2); CREATININE, SERUM 0.85 mg/dL (0.57-1.11); POTASSIUM 4.1 mmol/L (3.5-5.1); TOTAL PROTEIN 7.3 g/dL (6.5-8.1)
[2023-06-14] MEDS: LORAZEPAM INJ 2 MG/ML VIAL IV ONE ×2 (12:23→20:43)
[2023-06-14 12:38] LABS: BILIRUBIN,URINE NEGATIVE (NEGATIVE); CLARITY,URINE CLEAR (CLEAR); COLOR,URINE YELLOW (YELLOW); GLUCOSE, URINE NEGATIVE (NEGATIVE); KETONES,URINE NEGATIVE (NEGATIVE); LEUKOCYTE ESTERASE ,URINE NEGATIVE (NEGATIVE); NITRITE,URINE NEGATIVE (NEGATIVE); PH,URINE 5.5 (5 - 7); PROTEIN,URINE DIPSTICK 1+ (NEGATIVE); URINE UROBILINOGEN 0.2 mg/dL (0.2 - 1)
[2023-06-14 12:55] LABS: BACTERIA,URINE MODERATE /HPF; EPITHELIAL CELLS,URINE RARE /LPF; RBC,URINE 0-5 /HPF (0-5)
[2023-06-14 12:56] LABS: RENAL EPITHELIAL CELLS,URINE RARE
[2023-06-14] MEDS: PHYTONADIONE 10 MG/ML AMP IM ONE (17:49)
[2023-06-15] VITALS (8 sets, daily range): BP systolic 134–156; BP diastolic 57–75; PULSE 94–99; RESP 17–20; TEMP 98–98.6; O2SAT 96–100
[2023-06-15 06:13] LABS: BASOPHILS # (AUTO) 0.1 (0.0-0.1); BASOPHILS % 0.9 % (0.0-1.0); EOSINOPHILS # (AUTO) 0.7 (0.0-0.4); EOSINOPHILS % 5.1 % (0.0-6.0); HEMOGLOBIN 7.1 g/dL (12.0-16.0); LYMPHOCYTES # (AUTO) 2.3 (1.0-3.2); LYMPHOCYTES % 16.4 % (18.0-39.1); MEAN CORPUSCULAR HEMOGLOBIN 33.6 pg (28-32); MEAN CORPUSCULAR HGB CONC 33.5 g/dL (31-35); MEAN CORPUSCULAR VOLUME 100.5 fL (81-99); MONOCYTES # (AUTO) 1.3 (0.2-0.8); MONOCYTES % 9.2 % (4.4-11.3); NEUTROPHILS # (AUTO) 9.4 (2.1-6.9); NEUTROPHILS % 67.2 % (38.7-80.0); PLATELET COUNT 180 x10e3/uL (140-360); RED BLOOD COUNT 2.11 x10e6/uL (3.6-5.1); RED CELL DISTRIBUTION WIDTH 21.5 % (11.7-14.4); WHITE BLOOD COUNT 14.05 x10e3/uL (4.8-10.8)
[2023-06-15 06:16] LABS: HEMATOCRIT 21.2 % (34.2-44.1)
[2023-06-15 06:27] LABS: INR 1.52; PROTHROMBIN TIME 18.5 seconds (11.9-14.5)
[2023-06-15 06:28] LABS: PARTIAL THROMBOPLASTIN TIME 40.8 seconds (23.8-35.5)
[2023-06-15 07:03] LABS: ALBUMIN 1.9 g/dL (3.5-5.0); ALBUMIN/GLOBULIN RATIO 0.4 (0.8-2.0); ANION GAP 8.1 mmol/L (8-16); BILIRUBIN,TOTAL 1.9 mg/dL (0.2-1.2); CALCIUM 7.9 mg/dL (8.4-10.2); CREATININE, SERUM 0.82 mg/dL (0.57-1.11); POTASSIUM 4.1 mmol/L (3.5-5.1); TOTAL PROTEIN 7.2 g/dL (6.5-8.1)
[2023-06-15] MEDS ORDERED: GADOBENATE DIMEGLUMINE 1 ML IV ONE (08:04)
[2023-06-15] MEDS: FUROSEMIDE INJ 10 MG/ML 4 ML VIAL IV ONE (15:18)
[2023-06-15] MEDS: ENOXAPARIN SOD INJ 40 MG/0.4 ML SYR SC SCH (16:49)
[2023-06-15] MEDS: LACTULOSE SYRUP 20 GM/30 ML UDC PO ONE (17:44)
[2023-06-16 04:39] VITALS: BP 150/75; PULSE 97; RESP 18; TEMP 98.4; O2SAT 96
[2023-06-16] MEDS: LINEZOLID 600 MG TAB PO SCH (08:35)
[2023-06-16 08:51] VITALS: BP 147/74; PULSE 98; RESP 18; TEMP 98.3; O2SAT 99
[2023-06-16 08:57] VITALS: BP 147/74; PULSE 98; RESP 18; TEMP 98.3; O2SAT 99
[2023-06-16 12:00] VITALS: BP 162/72; PULSE 93; RESP 18; TEMP 98.4; O2SAT 100
[2023-06-16] MEDS: Morphine 2mg Syringe 2 MG/ML SYR IV PRN (15:05)
[2023-06-16 16:44] VITALS: BP 130/61; PULSE 93; RESP 19; TEMP 98.2; O2SAT 99
[2023-06-16 20:00] VITALS: BP 155/69; PULSE 95; RESP 17; TEMP 97.9; O2SAT 96
[2023-06-17] VITALS (8 sets, daily range): BP systolic 117–150; BP diastolic 50–78; PULSE 97–101; RESP 17–20; TEMP 97.6–99.3; O2SAT 94–98
[2023-06-17 08:26] LABS: BILIRUBIN,TOTAL 2.2 mg/dL (0.2-1.2); CALCIUM 8.1 mg/dL (8.4-10.2); CREATININE, SERUM 0.72 mg/dL (0.57-1.11); MAGNESIUM 1.3 MG/DL (1.3-2.1); TOTAL PROTEIN 7.2 g/dL (6.5-8.1)
[2023-06-17 08:52] LABS: BASOPHILS # (AUTO) 0.1 (0.0-0.1); EOSINOPHILS # (AUTO) 0.5 (0.0-0.4); EOSINOPHILS % 5.2 % (0.0-6.0); HEMOGLOBIN 7.1 g/dL (12.0-16.0); LYMPHOCYTES # (AUTO) 1.9 (1.0-3.2); LYMPHOCYTES % 19.6 % (18.0-39.1); MEAN CORPUSCULAR HEMOGLOBIN 33.2 pg (28-32); MEAN CORPUSCULAR HGB CONC 33.5 g/dL (31-35); MEAN CORPUSCULAR VOLUME 99.1 fL (81-99); MONOCYTES # (AUTO) 0.8 (0.2-0.8); MONOCYTES % 8.3 % (4.4-11.3); NEUTROPHILS # (AUTO) 6.4 (2.1-6.9); NEUTROPHILS % 65.2 % (38.7-80.0); PLATELET COUNT 161 x10e3/uL (140-360); RED BLOOD COUNT 2.14 x10e6/uL (3.6-5.1); RED CELL DISTRIBUTION WIDTH 20.7 % (11.7-14.4); WHITE BLOOD COUNT 9.88 x10e3/uL (4.8-10.8)
[2023-06-17 09:01] LABS: HEMATOCRIT 21.2 % (34.2-44.1)
[2023-06-17] MEDS: DULOXETINE HCL 20 MG DELAYED RELEASE PO SCH (09:05)
[2023-06-17] MEDS: SOD PHOSPHATE/SOD BIPHOSPHATE ENEMA 132 ML BTL PR ONE (09:06)
[2023-06-17 10:26] LABS: ALBUMIN 1.9 g/dL (3.5-5.0)
[2023-06-17 10:33] LABS: ALBUMIN/GLOBULIN RATIO 0.4 (0.8-2.0)
[2023-06-17] MEDS: LEVOTHYROXINE SODIUM 100 MCG TAB PO SCH (11:36)
[2023-06-18] VITALS (8 sets, daily range): BP systolic 133–155; BP diastolic 58–71; PULSE 96–98; RESP 17–20; TEMP 98.2–99.6; O2SAT 94–100
[2023-06-18] MEDS: MAGNESIUM SULFATE 2GM/50ML 50 ML IV ONE (06:04)
[2023-06-19] VITALS (8 sets, daily range): BP systolic 110–152; BP diastolic 55–82; PULSE 87–103; RESP 17–19; TEMP 97.5–98.9; O2SAT 93–100
[2023-06-19 13:08] LABS: BASOPHILS # (AUTO) 0.1 (0.0-0.1); EOSINOPHILS # (AUTO) 0.5 (0.0-0.4); EOSINOPHILS % 4.2 % (0.0-6.0); LYMPHOCYTES # (AUTO) 2.4 (1.0-3.2); MEAN CORPUSCULAR HGB CONC 33.5 g/dL (31-35); MEAN CORPUSCULAR VOLUME 98.6 fL (81-99); MONOCYTES # (AUTO) 1.1 (0.2-0.8); MONOCYTES % 10.7 % (4.4-11.3); NEUTROPHILS # (AUTO) 6.4 (2.1-6.9); NEUTROPHILS % 60.5 % (38.7-80.0); PLATELET COUNT 226 x10e3/uL (140-360); RED BLOOD COUNT 2.12 x10e6/uL (3.6-5.1); RED CELL DISTRIBUTION WIDTH 20.1 % (11.7-14.4); WHITE BLOOD COUNT 10.61 x10e3/uL (4.8-10.8)
[2023-06-19 13:21] LABS: HEMATOCRIT 20.9 % (34.2-44.1)
[2023-06-19 13:23] LABS: ALBUMIN 1.8 g/dL (3.5-5.0); ALBUMIN/GLOBULIN RATIO 0.3 (0.8-2.0); ANION GAP 12.9 mmol/L (8-16); BILIRUBIN,TOTAL 2.5 mg/dL (0.2-1.2); CALCIUM 8.2 mg/dL (8.4-10.2); CREATININE, SERUM 0.72 mg/dL (0.57-1.11); POTASSIUM 3.9 mmol/L (3.5-5.1); TOTAL PROTEIN 7.4 g/dL (6.5-8.1)
[2023-06-20] VITALS (8 sets, daily range): BP systolic 134–162; BP diastolic 66–77; PULSE 98–110; RESP 19–20; TEMP 97.4–98.7; O2SAT 96–98
[2023-06-20 05:52] LABS: BASOPHILS # (AUTO) 0.1 (0.0-0.1); EOSINOPHILS # (AUTO) 0.4 (0.0-0.4); EOSINOPHILS % 3.7 % (0.0-6.0); HEMATOCRIT 23.1 % (34.2-44.1); HEMOGLOBIN 7.8 g/dL (12.0-16.0); LYMPHOCYTES # (AUTO) 2.4 (1.0-3.2); LYMPHOCYTES % 22.5 % (18.0-39.1); MEAN CORPUSCULAR HEMOGLOBIN 32.5 pg (28-32); MEAN CORPUSCULAR HGB CONC 33.8 g/dL (31-35); MEAN CORPUSCULAR VOLUME 96.3 fL (81-99); MONOCYTES # (AUTO) 1.2 (0.2-0.8); MONOCYTES % 11.1 % (4.4-11.3); NEUTROPHILS # (AUTO) 6.5 (2.1-6.9); NEUTROPHILS % 61.4 % (38.7-80.0); PLATELET COUNT 208 x10e3/uL (140-360); RED CELL DISTRIBUTION WIDTH 20.1 % (11.7-14.4); WHITE BLOOD COUNT 10.61 x10e3/uL (4.8-10.8)
[2023-06-20 06:19] LABS: INR 1.77; PROTHROMBIN TIME 20.9 seconds (11.9-14.5)
[2023-06-20] MEDS: FUROSEMIDE INJ 10 MG/ML 4 ML VIAL IV ONE (13:39)
[2023-06-20] MEDS: LACTULOSE SYRUP 20 GM/30 ML UDC PO SCH (17:53)
[2023-06-21] VITALS (8 sets, daily range): BP systolic 143–164; BP diastolic 59–83; PULSE 105–117; RESP 17–20; TEMP 97.7–99; O2SAT 95–100
[2023-06-21 06:45] LABS: BASOPHILS # (AUTO) 0.1 (0.0-0.1); BASOPHILS % 0.9 % (0.0-1.0); EOSINOPHILS # (AUTO) 0.5 (0.0-0.4); EOSINOPHILS % 4.6 % (0.0-6.0); HEMATOCRIT 21.8 % (34.2-44.1); HEMOGLOBIN 7.3 g/dL (12.0-16.0); LYMPHOCYTES # (AUTO) 2.5 (1.0-3.2); LYMPHOCYTES % 25.1 % (18.0-39.1); MEAN CORPUSCULAR HEMOGLOBIN 32.2 pg (28-32); MEAN CORPUSCULAR HGB CONC 33.5 g/dL (31-35); MONOCYTES # (AUTO) 1.1 (0.2-0.8); NEUTROPHILS # (AUTO) 5.9 (2.1-6.9); NEUTROPHILS % 58.1 % (38.7-80.0); PLATELET COUNT 179 x10e3/uL (140-360); RED BLOOD COUNT 2.27 x10e6/uL (3.6-5.1); RED CELL DISTRIBUTION WIDTH 19.9 % (11.7-14.4); WHITE BLOOD COUNT 10.12 x10e3/uL (4.8-10.8)
[2023-06-21 07:08] LABS: ANION GAP 9.6 mmol/L (8-16); CALCIUM 8.2 mg/dL (8.4-10.2); CREATININE, SERUM 0.73 mg/dL (0.57-1.11); POTASSIUM 3.6 mmol/L (3.5-5.1)
[2023-06-21] MEDS: SODIUM CHLORIDE 0.9% 250ML 250 ML IV ONE (20:13)
[2023-06-22] VITALS (8 sets, daily range): BP systolic 150–161; BP diastolic 60–76; PULSE 110–119; RESP 18–20; TEMP 98.1–98.4; O2SAT 94–100
[2023-06-22] MEDS ORDERED: Morphine 2mg Syringe 2 MG/ML SYR IV ONE (12:30)
[2023-06-22] MEDS: Morphine 2mg Syringe 2 MG/ML SYR IV PRN (12:42)
[2023-06-23] VITALS (7 sets, daily range): BP systolic 133–150; BP diastolic 53–70; PULSE 81–118; RESP 16–20; TEMP 97–99.6; O2SAT 92–100
[2023-06-23 14:47] LABS: BASOPHILS # (AUTO) 0.1 (0.0-0.1); EOSINOPHILS # (AUTO) 0.4 (0.0-0.4); EOSINOPHILS % 3.7 % (0.0-6.0); HEMOGLOBIN 7.1 g/dL (12.0-16.0); LYMPHOCYTES # (AUTO) 2.4 (1.0-3.2); MEAN CORPUSCULAR HEMOGLOBIN 32.3 pg (28-32); MEAN CORPUSCULAR HGB CONC 33.2 g/dL (31-35); MEAN CORPUSCULAR VOLUME 97.3 fL (81-99); MONOCYTES # (AUTO) 1.4 (0.2-0.8); MONOCYTES % 13.4 % (4.4-11.3); NEUTROPHILS # (AUTO) 5.8 (2.1-6.9); NEUTROPHILS % 57.7 % (38.7-80.0); PLATELET COUNT 108 x10e3/uL (140-360); RED CELL DISTRIBUTION WIDTH 19.1 % (11.7-14.4); WHITE BLOOD COUNT 10.06 x10e3/uL (4.8-10.8)
[2023-06-23 15:01] LABS: HEMATOCRIT 21.4 % (34.2-44.1)
[2023-06-23 15:10] LABS: ALBUMIN 1.6 g/dL (3.5-5.0); ALBUMIN/GLOBULIN RATIO 0.3 (0.8-2.0); ANION GAP 11.9 mmol/L (8-16); CALCIUM 8.3 mg/dL (8.4-10.2); CREATININE, SERUM 0.71 mg/dL (0.57-1.11); POTASSIUM 3.9 mmol/L (3.5-5.1); TOTAL PROTEIN 7.4 g/dL (6.5-8.1)
[2023-06-23] MEDS: METOPROLOL TARTRATE 25 MG TAB PO SCH (15:59)
[2023-06-23] MEDS ORDERED: METOPROLOL TARTRATE 25 MG TAB ONE (16:00)
[2023-06-23] MEDS ORDERED: METOPROLOL SUCCINATE 25 MG TAB XL PO SCH (16:00)
[2023-06-23] MEDS ORDERED: SODIUM CHLORIDE 0.9% 1000ML 1,000 ML ONE (23:37)
[2023-06-24 00:25] VITALS: BP 142/71; PULSE 99; RESP 17; TEMP 98.5; O2SAT 99
[2023-06-24 04:27] VITALS: BP 130/62; PULSE 104; RESP 20; TEMP 98.2; O2SAT 94
[2023-06-24 08:03] VITALS: BP 143/63; PULSE 103; RESP 18; TEMP 98.1; O2SAT 100
[2023-06-24 08:30] LABS: BASOPHILS # (AUTO) 0.1 (0.0-0.1); EOSINOPHILS # (AUTO) 0.3 (0.0-0.4); EOSINOPHILS % 3.3 % (0.0-6.0); LYMPHOCYTES # (AUTO) 2.1 (1.0-3.2); LYMPHOCYTES % 23.5 % (18.0-39.1); MEAN CORPUSCULAR HEMOGLOBIN 32.3 pg (28-32); MEAN CORPUSCULAR HGB CONC 33.8 g/dL (31-35); MEAN CORPUSCULAR VOLUME 95.5 fL (81-99); MONOCYTES # (AUTO) 1.1 (0.2-0.8); MONOCYTES % 12.7 % (4.4-11.3); NEUTROPHILS # (AUTO) 5.2 (2.1-6.9); NEUTROPHILS % 59.2 % (38.7-80.0); PLATELET COUNT 105 x10e3/uL (140-360); RED CELL DISTRIBUTION WIDTH 18.6 % (11.7-14.4); WHITE BLOOD COUNT 8.84 x10e3/uL (4.8-10.8)
[2023-06-24] MEDS ORDERED: LACTULOSE SYRUP 20 GM/30 ML UDC PO ONE (08:30)
[2023-06-24] MEDS ORDERED: LACTULOSE SYRUP 20 GM/30 ML UDC PO PRN (08:30)
[2023-06-24 08:39] LABS: HEMATOCRIT 21.4 % (34.2-44.1); HEMOGLOBIN 7.2 g/dL (12.0-16.0)
[2023-06-24 08:57] LABS: ALBUMIN 1.7 g/dL (3.5-5.0); ALBUMIN/GLOBULIN RATIO 0.3 (0.8-2.0); BILIRUBIN,TOTAL 3.3 mg/dL (0.2-1.2); CALCIUM 8.4 mg/dL (8.4-10.2); CREATININE, SERUM 0.65 mg/dL (0.57-1.11); TOTAL PROTEIN 7.5 g/dL (6.5-8.1)
[2023-06-24] MEDS ORDERED: METOPROLOL TARTRATE 25 MG TAB ONE ×2 (10:05→17:31)
[2023-06-24] MEDS ORDERED: FUROSEMIDE 40 MG TAB ONE (10:06)
[2023-06-24] MEDS ORDERED: SPIRONOLACTONE 25 MG TAB ONE (10:06)
[2023-06-24] MEDS: FUROSEMIDE 40 MG TAB PO SCH (10:06)
[2023-06-24] MEDS: SPIRONOLACTONE 25 MG TAB PO SCH (10:06)
[2023-06-24 11:51] VITALS: BP 146/63; PULSE 99; RESP 20; TEMP 98.1; O2SAT 98
[2023-06-24] MEDS ORDERED: SODIUM CHLORIDE 0.9% 250ML 250 ML ONE (15:58)
[2023-06-24 16:00] VITALS: BP 140/69; PULSE 96; RESP 20; TEMP 97.6; O2SAT 98
[2023-06-24 20:00] VITALS: BP 136/60; PULSE 87; RESP 18; TEMP 98.4; O2SAT 100
[2023-06-25] VITALS (7 sets, daily range): BP systolic 125–139; BP diastolic 54–81; PULSE 81–90; RESP 16–20; TEMP 97.6–98.6; O2SAT 98–100
[2023-06-25 00:04] LABS: IRON 85 ug/dL (50-170)
[2023-06-25 00:07] LABS: TRANSFERRIN < 70 mg/dL (180-382)
[2023-06-25 00:09] LABS: % IRON SATURATION 108 % (15-50); TOTAL IRON BINDING CAPACITY 78 ug/dL (261-478)
[2023-06-25 07:23] LABS: BILIRUBIN,URINE SMALL (NEGATIVE); CLARITY,URINE CLEAR (CLEAR); COLOR,URINE YELLOW (YELLOW); GLUCOSE, URINE NEGATIVE (NEGATIVE); KETONES,URINE TRACE (NEGATIVE); LEUKOCYTE ESTERASE ,URINE NEGATIVE (NEGATIVE); NITRITE,URINE NEGATIVE (NEGATIVE); PH,URINE 6 (5 - 7); PROTEIN,URINE DIPSTICK 1+ (NEGATIVE); URINE UROBILINOGEN 0.2 mg/dL (0.2 - 1)
[2023-06-25 07:25] LABS: BACTERIA,URINE FEW /HPF; EPITHELIAL CELLS,URINE FEW /LPF; RBC,URINE 0-5 /HPF (0-5); WBC,URINE (MAN) 0-5 /HPF (0-5)
[2023-06-25 08:34] LABS: INR 1.54; PROTHROMBIN TIME 19.4 seconds (11.9-14.5)
[2023-06-25] MEDS: SPIRONOLACTONE 25 MG TAB PO SCH (09:00)
[2023-06-25] MEDS: PROPRANOLOL HCL 10 MG TAB PO SCH (09:00)
[2023-06-25] MEDS: FUROSEMIDE INJ 10 MG/ML 4 ML VIAL IV SCH (09:00)
[2023-06-25] MEDS: CEFTRIAXONE 2 GM in SODIUM CHLORIDE 0.9% 100 ML IV SCH (09:00)
[2023-06-25] MEDS ORDERED: FUROSEMIDE INJ 10 MG/ML 4 ML VIAL ONE ×2 (09:32→23:09)
[2023-06-25] MEDS ORDERED: METOPROLOL TARTRATE 25 MG TAB ONE ×2 (09:32→15:53)
[2023-06-25] MEDS ORDERED: PROPRANOLOL HCL 10 MG TAB ONE (09:33)
[2023-06-25] MEDS ORDERED: CEFTRIAXONE 2 GM VIAL ONE (09:33)
[2023-06-25] MEDS ORDERED: Morphine 2mg Syringe 2 MG/ML SYR ONE (09:35)
[2023-06-25 09:51] LABS: BASOPHILS # (AUTO) 0.1 (0.0-0.1); BASOPHILS % 0.5 % (0.0-1.0); EOSINOPHILS # (AUTO) 0.3 (0.0-0.4); EOSINOPHILS % 2.6 % (0.0-6.0); HEMATOCRIT 23.3 % (34.2-44.1); HEMOGLOBIN 7.8 g/dL (12.0-16.0); LYMPHOCYTES # (AUTO) 2.6 (1.0-3.2); LYMPHOCYTES % 26.6 % (18.0-39.1); MEAN CORPUSCULAR HEMOGLOBIN 31.8 pg (28-32); MEAN CORPUSCULAR HGB CONC 33.5 g/dL (31-35); MEAN CORPUSCULAR VOLUME 95.1 fL (81-99); MONOCYTES # (AUTO) 1.7 (0.2-0.8); NEUTROPHILS # (AUTO) 5.2 (2.1-6.9); NEUTROPHILS % 52.9 % (38.7-80.0); PLATELET COUNT 82 x10e3/uL (140-360); RED BLOOD COUNT 2.45 x10e6/uL (3.6-5.1); RED CELL DISTRIBUTION WIDTH 18.8 % (11.7-14.4); WHITE BLOOD COUNT 9.89 x10e3/uL (4.8-10.8)
[2023-06-25] MEDS ORDERED: SPIRONOLACTONE 25 MG TAB ONE (23:09)
[2023-06-25] MEDS: FUROSEMIDE INJ 10 MG/ML 4 ML VIAL IV STA (23:18)
[2023-06-25] MEDS: SPIRONOLACTONE 25 MG TAB PO STA (23:19)
[2023-06-26] VITALS (9 sets, daily range): BP systolic 120–136; BP diastolic 50–60; PULSE 77–84; RESP 18–20; TEMP 97.3–98.3; O2SAT 95–100
[2023-06-26 05:42] LABS: HEPATITIS B SURFACE AG (P) Nonreactive; HEPATITIS C ANTIBODY Nonreactive
[2023-06-26] MEDS ORDERED: SPIRONOLACTONE 25 MG TAB ONE (10:23)
[2023-06-26] MEDS ORDERED: METOPROLOL TARTRATE 25 MG TAB ONE (10:23)
[2023-06-26] MEDS ORDERED: PROPRANOLOL HCL 10 MG TAB ONE (10:23)
[2023-06-26] MEDS ORDERED: Morphine 2mg Syringe 2 MG/ML SYR ONE (10:23)
[2023-06-26] MEDS ORDERED: FUROSEMIDE INJ 10 MG/ML 4 ML VIAL ONE ×2 (10:23→20:41)
[2023-06-26] MEDS ORDERED: DULOXETINE HCL 20 MG DELAYED RELEASE PO ONE (10:23)
[2023-06-26] MEDS ORDERED: FOLIC ACID/CYANOCOB/PYRIDOXINE TAB ONE (10:23)
[2023-06-26] MEDS ORDERED: LEVOTHYROXINE SODIUM 100 MCG TAB ONE (10:23)
[2023-06-26] MEDS ORDERED: CEFTRIAXONE 2 GM VIAL ONE (10:23)
[2023-06-26] MEDS ORDERED: LACTULOSE SYRUP 20 GM/30 ML UDC ONE (10:23)
[2023-06-26] MEDS ORDERED: SODIUM CHLORIDE 0.9% INJ 100 ML BAG ONE (10:23)
[2023-06-26] MEDS ORDERED: Morphine 4mg INJECTION 4 MG/ML INJ ONE (10:23)
[2023-06-26] MEDS: SPIRONOLACTONE 25 MG TAB PO SCH (11:13)
[2023-06-26] MEDS: FOLIC ACID/CYANOCOB/PYRIDOXINE TAB PO SCH (11:14)
[2023-06-26] MEDS: FUROSEMIDE INJ 10 MG/ML 4 ML VIAL IV SCH (11:16)
[2023-06-26 14:53] LABS: HEMOGLOBIN 7.6 g/dL (12.0-16.0); MEAN CORPUSCULAR HEMOGLOBIN 31.9 pg (28-32); MEAN CORPUSCULAR HGB CONC 34.2 g/dL (31-35); MEAN CORPUSCULAR VOLUME 93.3 fL (81-99); PLATELET COUNT 76 x10e3/uL (140-360); RED BLOOD COUNT 2.38 x10e6/uL (3.6-5.1); RED CELL DISTRIBUTION WIDTH 18.3 % (11.7-14.4); WHITE BLOOD COUNT 10.07 x10e3/uL (4.8-10.8)
[2023-06-26 15:07] LABS: HEMATOCRIT 22.2 % (34.2-44.1)
[2023-06-26 15:09] LABS: ANION GAP 12.6 mmol/L (8-16); CALCIUM 8.6 mg/dL (8.4-10.2); CREATININE, SERUM 0.79 mg/dL (0.57-1.11); POTASSIUM 3.6 mmol/L (3.5-5.1)
[2023-06-27] VITALS (8 sets, daily range): BP systolic 92–150; BP diastolic 53–95; PULSE 77–86; RESP 16–19; TEMP 98–98.8; O2SAT 95–100
[2023-06-27] MEDS ORDERED: SODIUM CHLORIDE 0.9% 250ML 250 ML ONE ×2 (03:45→12:15)
[2023-06-27] MEDS ORDERED: FUROSEMIDE INJ 10 MG/ML 4 ML VIAL ONE ×4 (08:04→22:13)
[2023-06-27] MEDS ORDERED: METOPROLOL TARTRATE 25 MG TAB ONE ×5 (08:04→17:22)
[2023-06-27] MEDS ORDERED: FOLIC ACID/CYANOCOB/PYRIDOXINE TAB ONE ×3 (08:04→17:00)
[2023-06-27] MEDS ORDERED: SPIRONOLACTONE 25 MG TAB ONE ×4 (08:05→17:23)
[2023-06-27] MEDS ORDERED: CEFTRIAXONE 2 GM VIAL ONE ×2 (08:05→09:14)
[2023-06-27] MEDS ORDERED: SODIUM CHLORIDE 0.9% 100 ML ONE (08:05)
[2023-06-27] MEDS ORDERED: PROPRANOLOL HCL 10 MG TAB ONE ×5 (08:05→17:23)
[2023-06-27] MEDS ORDERED: LEVOTHYROXINE SODIUM 100 MCG TAB ONE ×2 (09:14→17:00)
[2023-06-27] MEDS ORDERED: DULOXETINE HCL 20 MG DELAYED RELEASE PO ONE ×2 (09:14→17:00)
[2023-06-27] MEDS ORDERED: Morphine 2mg Syringe 2 MG/ML SYR ONE ×3 (09:14→17:00)
[2023-06-27] MEDS ORDERED: SODIUM CHLORIDE 0.9% INJ 100 ML BAG ONE (09:14)
[2023-06-27] MEDS ORDERED: SODIUM CHLORIDE 0.9% INJ 250 ML BAG ONE ×2 (09:14→17:00)
[2023-06-27] MEDS: PROPRANOLOL HCL 10 MG TAB PO SCH (09:37)
[2023-06-27] MEDS ORDERED: PROPOFOL IV EMULSION 10 MG/ML 50 ML VIAL IV ONE (10:48)
[2023-06-27] MEDS ORDERED: LIDOCAINE HCL 2% LOCAL INJ 5 ML SDV VIAL INJ ONE (10:48)
[2023-06-27] MEDS ORDERED: CITRATE OF MAGNESIA 300ML BOTTLE ONE (17:00)
[2023-06-27] MEDS ORDERED: LACTULOSE SYRUP 20 GM/30 ML UDC ONE (17:00)
[2023-06-27] MEDS ORDERED: BISACODYL 5 MG TAB EC PO ONE (17:00)
[2023-06-28] VITALS (7 sets, daily range): BP systolic 120–143; BP diastolic 53–80; PULSE 73–82; RESP 16–20; TEMP 97.6–98.8; O2SAT 93–100
[2023-06-28] MEDS ORDERED: BISACODYL 5 MG TAB EC PO ONE ×3 (00:53→16:20)
[2023-06-28] MEDS: SODIUM CHLORIDE 0.9% 250ML 250 ML IV ONE (01:50)
[2023-06-28] MEDS: BISACODYL 5 MG TAB EC PO ONE ×4 (01:52→16:27)
[2023-06-28] MEDS ORDERED: CITRATE OF MAGNESIA 300ML BOTTLE ONE ×2 (05:52→17:45)
[2023-06-28] MEDS: CITRATE OF MAGNESIA 300ML BOTTLE PO ONE ×2 (05:56→17:58)
[2023-06-28 06:36] LABS: BASOPHILS % 0.3 % (0.0-1.0); EOSINOPHILS # (AUTO) 0.3 (0.0-0.4); EOSINOPHILS % 2.6 % (0.0-6.0); HEMATOCRIT 27.6 % (34.2-44.1); HEMOGLOBIN 9.2 g/dL (12.0-16.0); LYMPHOCYTES # (AUTO) 2.1 (1.0-3.2); LYMPHOCYTES % 16.2 % (18.0-39.1); MEAN CORPUSCULAR HEMOGLOBIN 31.4 pg (28-32); MEAN CORPUSCULAR HGB CONC 33.3 g/dL (31-35); MEAN CORPUSCULAR VOLUME 94.2 fL (81-99); MONOCYTES # (AUTO) 2.3 (0.2-0.8); MONOCYTES % 17.4 % (4.4-11.3); NEUTROPHILS # (AUTO) 8.2 (2.1-6.9); NEUTROPHILS % 62.8 % (38.7-80.0); PLATELET COUNT 111 x10e3/uL (140-360); RED BLOOD COUNT 2.93 x10e6/uL (3.6-5.1); RED CELL DISTRIBUTION WIDTH 16.7 % (11.7-14.4); WHITE BLOOD COUNT 12.99 x10e3/uL (4.8-10.8)
[2023-06-28] MEDS ORDERED: SODIUM CHLORIDE 0.9% INJ 100 ML BAG ONE (08:00)
[2023-06-28] MEDS ORDERED: SPIRONOLACTONE 25 MG TAB ONE ×3 (08:00→16:21)
[2023-06-28] MEDS ORDERED: CEFTRIAXONE 2 GM VIAL ONE ×2 (08:00→08:18)
[2023-06-28] MEDS ORDERED: FUROSEMIDE INJ 10 MG/ML 4 ML VIAL ONE ×3 (08:00→22:11)
[2023-06-28] MEDS ORDERED: DULOXETINE HCL 20 MG DELAYED RELEASE PO ONE ×3 (08:00→16:21)
[2023-06-28] MEDS ORDERED: LACTULOSE SYRUP 20 GM/30 ML UDC ONE (08:15)
[2023-06-28] MEDS ORDERED: FOLIC ACID/CYANOCOB/PYRIDOXINE TAB ONE (08:16)
[2023-06-28] MEDS ORDERED: METOPROLOL TARTRATE 25 MG TAB ONE ×2 (08:16→16:20)
[2023-06-28] MEDS ORDERED: PROPRANOLOL HCL 10 MG TAB ONE ×2 (08:17→16:20)
[2023-06-28] MEDS ORDERED: SODIUM CHLORIDE 0.9% 100 ML ONE (08:18)
[2023-06-28] MEDS ORDERED: Morphine 2mg Syringe 2 MG/ML SYR ONE (17:09)
[2023-06-29] MEDS: ONDANSETRON HCL 4 MG ORAL DISINTEGRATING TAB PO PRN (01:25)
[2023-06-29 03:33] VITALS: BP 134/54; PULSE 75; RESP 20; TEMP 97.9; O2SAT 93
[2023-06-29] MEDS ORDERED: SIMETHICONE 40 MG/0.6 ML BTL ONE (07:35)
[2023-06-29 09:00] VITALS: BP 115/53; PULSE 78; RESP 18; TEMP 97.8; O2SAT 98
[2023-06-29] MEDS ORDERED: FOLIC ACID/CYANOCOB/PYRIDOXINE TAB ONE (10:11)
[2023-06-29] MEDS ORDERED: FUROSEMIDE INJ 10 MG/ML 4 ML VIAL ONE (10:11)
[2023-06-29] MEDS ORDERED: METOPROLOL TARTRATE 25 MG TAB ONE (10:11)
[2023-06-29] MEDS ORDERED: PROPRANOLOL HCL 10 MG TAB ONE (10:12)
[2023-06-29] MEDS ORDERED: SPIRONOLACTONE 25 MG TAB ONE (10:12)
[2023-06-29] MEDS ORDERED: SODIUM CHLORIDE 0.9% 100 ML ONE (10:12)
[2023-06-29] MEDS ORDERED: CEFTRIAXONE 2 GM VIAL ONE (10:13)
[2023-06-29 11:11] VITALS: BP 156/70; PULSE 80; RESP 17; TEMP 98.2; O2SAT 97
[2023-06-29] MEDS ORDERED: PROPOFOL IV EMULSION 10 MG/ML 50 ML VIAL IV ONE (13:26)
[2023-06-29] MEDS ORDERED: LIDOCAINE HCL 2% LOCAL INJ 5 ML SDV VIAL INJ ONE (13:26)
== END 2023-06-29 15:06 | DRG 539 ==
LOC: ER 13:25 → ERHOLD 15:38 → MED/SURG3 19:49
PROVIDERS: ADMIT Family Medicine; ATTEND Family Medicine
PROC: 30233N1 Transfusion of Nonautologous Red Blood Cells into Peripheral Vein, Percutaneous Approach (ICD-10-PCS; principal; 2023-06-19)
PROC: 0DB98ZX Excision of Duodenum, Via Natural or Artificial Opening Endoscopic, Diagnostic (ICD-10-PCS; 2023-06-27)
PROC: 0DJD8ZZ Inspection of Lower Intestinal Tract, Via Natural or Artificial Opening Endoscopic (ICD-10-PCS; 2023-06-29)
DX: M46.36 Infection of intervertebral disc (pyogenic), lumbar region (principal); K68.12 Psoas muscle abscess; K76.6 Portal hypertension; Z16.21 Resistance to vancomycin; N39.0 Urinary tract infection, site not specified; M46.26 Osteomyelitis of vertebra, lumbar region; B95.2 Enterococcus as the cause of diseases classified elsewhere; B95.4 Other streptococcus as the cause of diseases classified elsewhere; E11.69 Type 2 diabetes mellitus with other specified complication; K76.82 Hepatic encephalopathy; Z68.38 Body mass index [BMI] 38.0-38.9, adult; Z11.52 Encounter for screening for COVID-19; E03.9 Hypothyroidism, unspecified; F32.A Depression, unspecified; K74.60 Unspecified cirrhosis of liver; R53.81 Other malaise; I10 Essential (primary) hypertension; R60.1 Generalized edema; E87.70 Fluid overload, unspecified; K44.9 Diaphragmatic hernia without obstruction or gangrene; D50.0 Iron deficiency anemia secondary to blood loss (chronic); K55.20 Angiodysplasia of colon without hemorrhage; K31.89 Other diseases of stomach and duodenum; E66.01 Morbid (severe) obesity due to excess calories; K59.00 Constipation, unspecified; E83.42 Hypomagnesemia; Z88.2 Allergy status to sulfonamides; Z88.1 Allergy status to other antibiotic agents; Z79.899 Other long term (current) drug therapy; Z79.890 Hormone replacement therapy; Z85.850 Personal history of malignant neoplasm of thyroid; Z85.3 Personal history of malignant neoplasm of breast
CPT/HCPCS: 36415; 43239; 45378; 72158; 74177; 80048; 80053; 81001; 82140; 82270; 82607; 82728; 82746; 82948; 83010; 83540; 83605; 83735; 84466; 85007; 85018; 85025; 85027; 85045; 85610; 85730; 86140; 86850; 86900; 86920; 87040; 87071; 87086; 87186; 87205; 88305; 93005; 93306; 93970; 94799; 96372; 99252; 99285; J0696; J1650; J1940; J2001; J2060; J2270; J2405; J2543; J3430; J3475; J7030; J7050; P9016; Q0162; Q9967; U0002